=== PATIENT | male | born 1960 | race Caucasian/White ===

== ENCOUNTER 2017-01-09 16:18 | Emergency (ER) | payer SELFPAY ==
[~2017-01-09] VITALS: Ht 175.3 cm; Wt 75.5 kg
[2017-01-09 17:18] LABS: ADD MIUA? YES; BILIRUBIN NEGATIVE; BLOOD MODERATE; COLOR YELLOW ((YELLOW)); GLUCOSE (STRIP) NEGATIVE; KETONES NEGATIVE; LEUKOCYTES NEGATIVE; NITRITE NEGATIVE; PROTEIN (STRIP) 100; SPECIFIC GRAVITY 1.021 (1.000-1.030); UROBILINOGEN 0.2 MG/DL (0.2-1.0)
[2017-01-09 17:22] LABS: BACTERIA RARE /HPF; EPITHELIAL CELLS RARE /HPF; GRANULAR CASTS TNTC /LPF; HYALINE CASTS 0-5 /LPF; MUCUS TRACE /LPF; RED BLOOD CELLS TNTC /HPF (0-5); WHITE BLOOD CELLS TNTC /HPF (0-5)
[2017-01-09 17:24] LABS: HEMATOCRIT 29.9 % (38.0-50.0); MCH 30.6 PG (29.0-34.0); MCHC 34.8 G/DL (30.0-36.0); MCV 87.9 FL (86-99); MEAN PLAT.VOLUME 8.5 uM^3 (9.0-12.4); PLATELET COUNT 208 K/uL (156-360); RBC DIS.WIDTH-CV 13.2 % (11.8-14.6); RBC DIS.WIDTH-SD 42.7 % (39-53); WHITE BLOOD COUNT 5.6 K/uL (4.1-10.2)
[2017-01-09 17:33] LABS: CHLORIDE 104 mEq/L (99-109); POTASSIUM 3.9 mEq/L (3.7-5.4); SODIUM 137 mEq/L (136-147)
[2017-01-09 17:36] LABS: GLUCOSE 78 mg/dL (70-99)
[2017-01-09 17:37] LABS: ANION GAP 10 MEQ/L (2-14)
[2017-01-09 17:38] LABS: TOTAL BILIRUBIN 0.3 mg/dL (0.0-1.0)
[2017-01-09 17:39] LABS: ALKALINE PHOSPHATASE 52 IU/L (3-129); GFR ESTIMATE (CALCULATED) > 59 mL/min/
[2017-01-09 17:40] LABS: UREA NITROGEN (BUN) 16 mg/dL (9-23)
[2017-01-09] MEDS ORDERED: BACTRIM,SEPT1 TABLET PO (19:33)
[2017-01-09 19:48] VITALS: BP 118/74
== END 2017-01-09 19:49 | disposition home or self-care (01) ==
LOC: EME 16:18
PROVIDERS: Nurse Practitioner Family
DX: N30.01 Acute cystitis with hematuria (principal); R10.9 Unspecified abdominal pain; F17.200 Nicotine dependence, unspecified, uncomplicated
CPT/HCPCS: 74000; 80053; 81003; 85027; 87086; 99281; 99284

== ENCOUNTER 2017-01-11 00:32 | Inpatient (IN) | payer OTHER ==
[~2017-01-11] VITALS: Ht 175.3 cm; Wt 69.1 kg
[~2017-01-11 00:32] MED LIST: BACTRIM,SEPT1 TABLET PO
[2017-01-11 01:09] LABS: HEMATOCRIT 33.7 % (38.0-50.0); MCH 30.3 PG (29.0-34.0); MCHC 34.4 G/DL (30.0-36.0); MEAN PLAT.VOLUME 8.8 uM^3 (9.0-12.4); PLATELET COUNT 269 K/uL (156-360); RBC DIS.WIDTH-CV 13.4 % (11.8-14.6); RBC DIS.WIDTH-SD 43.1 % (39-53); RED BLOOD COUNT 3.83 M/uL (4.00-5.50); WHITE BLOOD COUNT 7.3 K/uL (4.1-10.2)
[2017-01-11 01:11] LABS: CHLORIDE 105 mEq/L (99-109); POTASSIUM 3.8 mEq/L (3.7-5.4); SODIUM 138 mEq/L (136-147)
[2017-01-11 01:15] LABS: ANION GAP 12 MEQ/L (2-14)
[2017-01-11 01:16] LABS: TOTAL BILIRUBIN 0.3 mg/dL (0.0-1.0)
[2017-01-11 01:17] LABS: ALKALINE PHOSPHATASE 65 IU/L (3-129); GFR ESTIMATE (CALCULATED) > 59 mL/min/
[2017-01-11 01:18] LABS: ADD MIUA? YES; BILIRUBIN NEGATIVE; BLOOD LARGE; GLUCOSE (STRIP) 50; KETONES 5; LEUKOCYTES NEGATIVE; NITRITE NEGATIVE; PROTEIN (STRIP) 100; SPECIFIC GRAVITY 1.017 (1.000-1.030); UROBILINOGEN 0.2 MG/DL (0.2-1.0)
[2017-01-11 01:18] LABS: UREA NITROGEN (BUN) 13 mg/dL (9-23)
[2017-01-11 01:19] LABS: COLOR RED ((YELLOW))
[2017-01-11 01:25] LABS: GLUCOSE 106 mg/dL (70-99)
[2017-01-11 01:29] LABS: RED BLOOD CELLS TNTC /HPF (0-5)
[2017-01-11 01:30] LABS: UCUL ADDED? YES
[2017-01-11 06:33] VITALS: BP 163/85
[2017-01-11 09:39] VITALS: BP 151/77
[2017-01-11 16:28] VITALS: BP 147/76
[2017-01-11 19:22] VITALS: BP 160/77
[2017-01-12 00:56] VITALS: BP 145/80
[2017-01-12 04:00] VITALS: BP 147/78
[2017-01-12 05:21] LABS: EOSINOPHIL (%) 0.2 % (0-5); HEMATOCRIT 29.9 % (38.0-50.0); IMMATURE GRANULOCYTE (%) 0.3 % (0.0-0.7); INSTRUMENT ABS NEUTROPHIL CT 4.9 K/uL; LYMPHOCYTE COUNT 0.9 K/uL (1.0-2.8); MCH 29.9 PG (29.0-34.0); MCHC 33.4 G/DL (30.0-36.0); MCV 89.3 FL (86-99); MEAN PLAT.VOLUME 8.9 uM^3 (9.0-12.4); MONOCYTE (%) 6.3 % (3-12); MONOCYTE COUNT 0.4 K/uL (0-0.8); NEUTROPHIL (%) 78.5 % (45-76); NEUTROPHIL COUNT 4.9 K/uL (1.8-6.4); PLATELET COUNT 217 K/uL (156-360); RBC DIS.WIDTH-CV 13.2 % (11.8-14.6); RBC DIS.WIDTH-SD 43.5 % (39-53); RED BLOOD COUNT 3.35 M/uL (4.00-5.50); WHITE BLOOD COUNT 6.2 K/uL (4.1-10.2)
[2017-01-12 05:40] LABS: INTER. NORMALIZED RATIO 1.1; PROTHROMBIN TIME 11.4 (9.2-11.2); PTT 25.4 (25-32)
[2017-01-12 05:51] LABS: ALKALINE PHOSPHATASE 57 IU/L (3-129); ANION GAP 14 MEQ/L (2-14); CHLORIDE 107 MEQ/L (99-109); GFR ESTIMATE (CALCULATED) > 59 mL/min/; GLUCOSE 96 mg/dL (70-99); POTASSIUM 4.4 MEQ/L (3.7-5.4); SAMPLE HEMOLYSIS CHECK 0; SAMPLE ICTERIC CHECK 0; SAMPLE LIPEMIA CHECK 0; SODIUM 139 MEQ/L (136-147); TOTAL BILIRUBIN 0.4 MG/DL (0.0-1.0); UREA NITROGEN (BUN) 9 mg/dL (9-23)
[2017-01-12 07:49] VITALS: BP 146/86
[2017-01-12 16:06] VITALS: BP 144/78
[2017-01-12 20:52] VITALS: BP 198/90
[2017-01-12 23:37] VITALS: BP 151/79
[2017-01-13] VITALS (7 sets, daily range): BP systolic 131–149; BP diastolic 64–71
[2017-01-13 05:53] LABS: EOSINOPHIL (%) 0 % (0-5); HEMATOCRIT 25.8 % (38.0-50.0); IMMATURE GRANULOCYTE (%) 0.4 % (0.0-0.7); INSTRUMENT ABS NEUTROPHIL CT 5.5 K/uL; LYMPHOCYTE COUNT 0.7 K/uL (1.0-2.8); MCH 30.4 PG (29.0-34.0); MCHC 33.3 G/DL (30.0-36.0); MCV 91.2 FL (86-99); MEAN PLAT.VOLUME 9.2 uM^3 (9.0-12.4); MONOCYTE (%) 8.9 % (3-12); MONOCYTE COUNT 0.6 K/uL (0-0.8); NEUTROPHIL COUNT 5.5 K/uL (1.8-6.4); PLATELET COUNT 189 K/uL (156-360); RBC DIS.WIDTH-CV 13.6 % (11.8-14.6); RBC DIS.WIDTH-SD 45.1 % (39-53); RED BLOOD COUNT 2.83 M/uL (4.00-5.50); WHITE BLOOD COUNT 6.9 K/uL (4.1-10.2)
[2017-01-13 06:16] LABS: ANION GAP 13 MEQ/L (2-14); CHLORIDE 107 MEQ/L (99-109); GFR ESTIMATE (CALCULATED) > 59 mL/min/; GLUCOSE 117 mg/dL (70-99); POTASSIUM 4.3 MEQ/L (3.7-5.4); SAMPLE HEMOLYSIS CHECK 0; SAMPLE ICTERIC CHECK 0; SAMPLE LIPEMIA CHECK 0; SODIUM 139 MEQ/L (136-147); UREA NITROGEN (BUN) 11 mg/dL (9-23)
[2017-01-14] VITALS (7 sets, daily range): BP systolic 145–177; BP diastolic 76–84
[2017-01-14 05:08] LABS: EOSINOPHIL (%) 0 % (0-5); HEMATOCRIT 25.8 % (38.0-50.0); IMMATURE GRANULOCYTE (%) 0.6 % (0.0-0.7); INSTRUMENT ABS NEUTROPHIL CT 5.4 K/uL; LYMPHOCYTE COUNT 0.8 K/uL (1.0-2.8); MCH 30.3 PG (29.0-34.0); MCHC 33.7 G/DL (30.0-36.0); MCV 89.9 FL (86-99); MEAN PLAT.VOLUME 9.2 uM^3 (9.0-12.4); MONOCYTE (%) 8.9 % (3-12); MONOCYTE COUNT 0.6 K/uL (0-0.8); NEUTROPHIL (%) 78.3 % (45-76); NEUTROPHIL COUNT 5.4 K/uL (1.8-6.4); PLATELET COUNT 202 K/uL (156-360); RBC DIS.WIDTH-CV 13.3 % (11.8-14.6); RBC DIS.WIDTH-SD 43.9 % (39-53); RED BLOOD COUNT 2.87 M/uL (4.00-5.50); WHITE BLOOD COUNT 6.9 K/uL (4.1-10.2)
[2017-01-14 05:37] LABS: ANION GAP 10 MEQ/L (2-14); CHLORIDE 106 MEQ/L (99-109); GFR ESTIMATE (CALCULATED) > 59 mL/min/; GLUCOSE 102 mg/dL (70-99); MAGNESIUM 2.2 mg/dl (1.3-2.7); POTASSIUM 3.8 MEQ/L (3.7-5.4); SAMPLE HEMOLYSIS CHECK 0; SAMPLE ICTERIC CHECK 0; SAMPLE LIPEMIA CHECK 0; SODIUM 138 MEQ/L (136-147); UREA NITROGEN (BUN) 12 mg/dL (9-23)
[2017-01-15 05:30] LABS: HEMATOCRIT 27.4 % (38.0-50.0); MCH 30.2 PG (29.0-34.0); MCHC 33.6 G/DL (30.0-36.0); MCV 89.8 FL (86-99); MEAN PLAT.VOLUME 9.5 uM^3 (9.0-12.4); PLATELET COUNT 221 K/uL (156-360); RBC DIS.WIDTH-CV 13.4 % (11.8-14.6); RBC DIS.WIDTH-SD 44.2 % (39-53); RED BLOOD COUNT 3.05 M/uL (4.00-5.50); WHITE BLOOD COUNT 7.6 K/uL (4.1-10.2)
[2017-01-15 05:40] LABS: ANION GAP 11 MEQ/L (2-14); CHLORIDE 106 MEQ/L (99-109); GFR ESTIMATE (CALCULATED) > 59 mL/min/; GLUCOSE 109 mg/dL (70-99); MAGNESIUM 2.3 mg/dl (1.3-2.7); POTASSIUM 4.2 MEQ/L (3.7-5.4); SAMPLE HEMOLYSIS CHECK 0; SAMPLE ICTERIC CHECK 0; SAMPLE LIPEMIA CHECK 0; SODIUM 140 MEQ/L (136-147); UREA NITROGEN (BUN) 13 mg/dL (9-23)
[2017-01-15 07:15] VITALS: BP 163/87
[2017-01-15 11:16] VITALS: BP 159/81
[2017-01-15 15:07] VITALS: BP 163/87
[2017-01-15 20:07] VITALS: BP 168/86
[2017-01-15 23:28] VITALS: BP 147/88
[2017-01-16] VITALS (7 sets, daily range): BP systolic 152–460; BP diastolic 78–94
[2017-01-16 11:24] LABS: POINT-OF-CARE METER ID UU14149397
[2017-01-17 03:15] VITALS: BP 162/84
[2017-01-17 08:00] VITALS: BP 165/87
[2017-01-17 17:32] LABS: POINT-OF-CARE METER ID UU14188577
[2017-01-17 22:01] LABS: POINT-OF-CARE METER ID UU14188577
[2017-01-17 23:25] VITALS: BP 166/85
[2017-01-18 06:01] LABS: EOSINOPHIL (%) 0.4 % (0-5); EOSINOPHIL COUNT 0.1 K/uL (0-0.3); HEMATOCRIT 30.1 % (38.0-50.0); IMMATURE GRANULOCYTE (%) 0.5 % (0.0-0.7); IMMATURE GRANULOCYTE COUNT 0.1 K/uL; INSTRUMENT ABS NEUTROPHIL CT 8.5 K/uL; LYMPHOCYTE COUNT 1.4 K/uL (1.0-2.8); MCH 30.2 PG (29.0-34.0); MCHC 35.2 G/DL (30.0-36.0); MEAN PLAT.VOLUME 8.4 uM^3 (9.0-12.4); MONOCYTE COUNT 1.1 K/uL (0-0.8); NEUTROPHIL (%) 76.2 % (45-76); NEUTROPHIL COUNT 8.5 K/uL (1.8-6.4); RBC DIS.WIDTH-CV 13.4 % (11.8-14.6); RBC DIS.WIDTH-SD 41.9 % (39-53); RED BLOOD COUNT 3.51 M/uL (4.00-5.50)
[2017-01-18 06:26] LABS: ANION GAP 14 MEQ/L (2-14); CHLORIDE 100 MEQ/L (99-109); GFR ESTIMATE (CALCULATED) 51 mL/min/; GLUCOSE 128 mg/dL (70-99); MAGNESIUM 2.4 mg/dl (1.3-2.7); POTASSIUM 3.8 MEQ/L (3.7-5.4); SAMPLE HEMOLYSIS CHECK 0; SAMPLE ICTERIC CHECK 0; SAMPLE LIPEMIA CHECK 0; SODIUM 134 MEQ/L (136-147)
[2017-01-18 06:28] LABS: UREA NITROGEN (BUN) 22 mg/dL (9-23)
[2017-01-18 06:31] LABS: MCV 85.8 FL (86-99); PLATELET COUNT 300 K/uL (156-360); WHITE BLOOD COUNT 11.2 K/uL (4.1-10.2)
[2017-01-18 06:37] LABS: POINT-OF-CARE METER ID UU14188577
[2017-01-18 08:00] VITALS: BP 145/87
[2017-01-18 12:00] VITALS: BP 136/84
[2017-01-18 16:08] VITALS: BP 160/87
[2017-01-18 19:16] VITALS: BP 175/92
[2017-01-19 03:28] VITALS: BP 136/84
[2017-01-19 04:58] LABS: MCH 29.9 PG (29.0-34.0); MCV 85.4 FL (86-99); MEAN PLAT.VOLUME 8.5 uM^3 (9.0-12.4); PLATELET COUNT 252 K/uL (156-360); RBC DIS.WIDTH-CV 13.3 % (11.8-14.6); RBC DIS.WIDTH-SD 41.7 % (39-53); RED BLOOD COUNT 3.28 M/uL (4.00-5.50); WHITE BLOOD COUNT 9.3 K/uL (4.1-10.2)
[2017-01-19 05:17] LABS: CHLORIDE 107 mEq/L (99-109); SODIUM 136 mEq/L (136-147)
[2017-01-19 05:18] LABS: MAGNESIUM 2.2 mg/dL (1.3-2.7)
[2017-01-19 05:19] LABS: GLUCOSE 108 mg/dL (70-99)
[2017-01-19 05:20] LABS: ANION GAP 10 MEQ/L (2-14)
[2017-01-19 05:23] LABS: GFR ESTIMATE (CALCULATED) 51 mL/min/
[2017-01-19 05:24] LABS: UREA NITROGEN (BUN) 22 mg/dL (9-23)
[2017-01-19 08:05] VITALS: BP 169/91
[2017-01-19 12:03] LABS: POINT-OF-CARE METER ID UU14188577
[2017-01-19 16:45] VITALS: BP 162/85
[2017-01-20 00:23] VITALS: BP 137/79
[2017-01-20 03:57] VITALS: BP 141/91
[2017-01-20 05:21] LABS: EOSINOPHIL (%) 0.5 % (0-5); HEMATOCRIT 26.8 % (38.0-50.0); IMMATURE GRANULOCYTE (%) 0.5 % (0.0-0.7); INSTRUMENT ABS NEUTROPHIL CT 6.2 K/uL; MCH 30.2 PG (29.0-34.0); MCHC 35.4 G/DL (30.0-36.0); MCV 85.1 FL (86-99); MEAN PLAT.VOLUME 8.4 uM^3 (9.0-12.4); MONOCYTE (%) 9.2 % (3-12); MONOCYTE COUNT 0.7 K/uL (0-0.8); NEUTROPHIL (%) 76.7 % (45-76); NEUTROPHIL COUNT 6.2 K/uL (1.8-6.4); PLATELET COUNT 202 K/uL (156-360); RBC DIS.WIDTH-CV 13.5 % (11.8-14.6); RBC DIS.WIDTH-SD 42.1 % (39-53); RED BLOOD COUNT 3.15 M/uL (4.00-5.50); WHITE BLOOD COUNT 8.1 K/uL (4.1-10.2)
[2017-01-20 05:58] LABS: ANION GAP 14 MEQ/L (2-14); CHLORIDE 104 MEQ/L (99-109); GFR ESTIMATE (CALCULATED) 30 mL/min/; GLUCOSE 104 mg/dL (70-99); POTASSIUM 3.7 MEQ/L (3.7-5.4); SAMPLE HEMOLYSIS CHECK 0; SAMPLE ICTERIC CHECK 0; SAMPLE LIPEMIA CHECK 0; SODIUM 135 MEQ/L (136-147); UREA NITROGEN (BUN) 28 mg/dL (9-23)
[2017-01-20 08:27] VITALS: BP 178/99
[2017-01-20 12:19] VITALS: BP 152/76
[2017-01-20 17:25] VITALS: BP 157/87
[2017-01-20 20:38] VITALS: BP 135/85
[2017-01-21 00:40] VITALS: BP 150/79
[2017-01-21 05:29] LABS: EOSINOPHIL (%) 0.6 % (0-5); EOSINOPHIL COUNT 0.1 K/uL (0-0.3); HEMATOCRIT 25.1 % (38.0-50.0); IMMATURE GRANULOCYTE (%) 0.4 % (0.0-0.7); INSTRUMENT ABS NEUTROPHIL CT 5.9 K/uL; LYMPHOCYTE COUNT 1.1 K/uL (1.0-2.8); MCH 29.2 PG (29.0-34.0); MCHC 34.7 G/DL (30.0-36.0); MCV 84.2 FL (86-99); MEAN PLAT.VOLUME 8.6 uM^3 (9.0-12.4); MONOCYTE COUNT 0.8 K/uL (0-0.8); NEUTROPHIL COUNT 5.9 K/uL (1.8-6.4); PLATELET COUNT 173 K/uL (156-360); RBC DIS.WIDTH-CV 13.6 % (11.8-14.6); RBC DIS.WIDTH-SD 41.8 % (39-53); RED BLOOD COUNT 2.98 M/uL (4.00-5.50); WHITE BLOOD COUNT 7.9 K/uL (4.1-10.2)
[2017-01-21 06:01] LABS: ALKALINE PHOSPHATASE 44 IU/L (3-129); ANION GAP 13 MEQ/L (2-14); CHLORIDE 104 MEQ/L (99-109); GFR ESTIMATE (CALCULATED) 22 mL/min/; GLUCOSE 99 mg/dL (70-99); MAGNESIUM 2.2 mg/dl (1.3-2.7); POTASSIUM 3.8 MEQ/L (3.7-5.4); SAMPLE HEMOLYSIS CHECK 0; SAMPLE ICTERIC CHECK 0; SAMPLE LIPEMIA CHECK 0; SODIUM 134 MEQ/L (136-147); TOTAL BILIRUBIN 0.4 MG/DL (0.0-1.0); UREA NITROGEN (BUN) 29 mg/dL (9-23); URIC ACID 12.2 mg/dL (3.1-9.2)
[2017-01-21 07:00] VITALS: BP 130/90
[2017-01-21 14:45] VITALS: BP 138/85
[2017-01-21 16:51] VITALS: BP 151/83
[2017-01-21 18:38] LABS: ADD MIUA? YES; BILIRUBIN NEGATIVE; BLOOD LARGE; GLUCOSE (STRIP) NEGATIVE; KETONES NEGATIVE; LEUKOCYTES NEGATIVE; NITRITE POSITIVE; PROTEIN (STRIP) 100; SPECIFIC GRAVITY 1.008 (1.000-1.030); UROBILINOGEN 0.2 MG/DL (0.2-1.0)
[2017-01-21 18:39] LABS: COLOR DK YELLOW ((YELLOW))
[2017-01-21 18:49] LABS: BACTERIA NONE SEEN /HPF; CASTS NONE SEEN /LPF; CRYSTALS NONE SEEN; EPITHELIAL CELLS NONE SEEN /HPF; MUCUS NONE SEEN /LPF; RED BLOOD CELLS TNTC /HPF (0-5); UCUL ADDED? NO; WHITE BLOOD CELLS RARE /HPF (0-5)
[2017-01-21 20:38] VITALS: BP 132/84
[2017-01-22 00:45] VITALS: BP 139/79
[2017-01-22 05:23] LABS: EOSINOPHIL (%) 0.6 % (0-5); EOSINOPHIL COUNT 0.1 K/uL (0-0.3); IMMATURE GRANULOCYTE (%) 0.8 % (0.0-0.7); IMMATURE GRANULOCYTE COUNT 0.1 K/uL; INSTRUMENT ABS NEUTROPHIL CT 5.6 K/uL; LYMPHOCYTE COUNT 1.1 K/uL (1.0-2.8); MCH 29.1 PG (29.0-34.0); MCHC 34.4 G/DL (30.0-36.0); MCV 84.5 FL (86-99); MEAN PLAT.VOLUME 8.8 uM^3 (9.0-12.4); MONOCYTE COUNT 0.9 K/uL (0-0.8); NEUTROPHIL (%) 72.8 % (45-76); NEUTROPHIL COUNT 5.6 K/uL (1.8-6.4); PLATELET COUNT 180 K/uL (156-360); RBC DIS.WIDTH-CV 13.7 % (11.8-14.6); RBC DIS.WIDTH-SD 41.9 % (39-53); RED BLOOD COUNT 2.96 M/uL (4.00-5.50); WHITE BLOOD COUNT 7.7 K/uL (4.1-10.2)
[2017-01-22 05:35] LABS: ALKALINE PHOSPHATASE 43 IU/L (3-129); ANION GAP 13 MEQ/L (2-14); CHLORIDE 104 MEQ/L (99-109); GFR ESTIMATE (CALCULATED) 24 mL/min/; GLUCOSE 109 mg/dL (70-99); POTASSIUM 3.8 MEQ/L (3.7-5.4); SAMPLE HEMOLYSIS CHECK 0; SAMPLE ICTERIC CHECK 0; SAMPLE LIPEMIA CHECK 0; SODIUM 135 MEQ/L (136-147); TOTAL BILIRUBIN 0.4 MG/DL (0.0-1.0); UREA NITROGEN (BUN) 32 mg/dL (9-23)
[2017-01-22 08:39] VITALS: BP 173/88
[2017-01-22 17:15] VITALS: BP 144/77
[2017-01-23] VITALS: BP 142/82
[2017-01-23 05:13] VITALS: BP 103/57
[2017-01-23 05:26] LABS: EOSINOPHIL (%) 1.7 % (0-5); EOSINOPHIL COUNT 0.1 K/uL (0-0.3); HEMATOCRIT 26.1 % (38.0-50.0); IMMATURE GRANULOCYTE COUNT 0.1 K/uL; LYMPHOCYTE COUNT 1.2 K/uL (1.0-2.8); MCH 29.5 PG (29.0-34.0); MCHC 35.6 G/DL (30.0-36.0); MCV 82.9 FL (86-99); MEAN PLAT.VOLUME 8.7 uM^3 (9.0-12.4); MONOCYTE (%) 8.6 % (3-12); MONOCYTE COUNT 0.7 K/uL (0-0.8); NEUTROPHIL (%) 73.6 % (45-76); PLATELET COUNT 188 K/uL (156-360); RBC DIS.WIDTH-CV 13.6 % (11.8-14.6); RED BLOOD COUNT 3.15 M/uL (4.00-5.50); WHITE BLOOD COUNT 8.2 K/uL (4.1-10.2)
[2017-01-23 05:48] LABS: ANION GAP 13 MEQ/L (2-14); CHLORIDE 104 MEQ/L (99-109); GFR ESTIMATE (CALCULATED) 37 mL/min/; GLUCOSE 105 mg/dL (70-99); POTASSIUM 3.6 MEQ/L (3.7-5.4); SAMPLE HEMOLYSIS CHECK 0; SAMPLE ICTERIC CHECK 0; SAMPLE LIPEMIA CHECK 0; SODIUM 135 MEQ/L (136-147); UREA NITROGEN (BUN) 24 mg/dL (9-23)
[2017-01-23 08:17] VITALS: BP 152/79
[2017-01-23 16:29] VITALS: BP 133/84
[2017-01-23 23:43] VITALS: BP 137/83
[2017-01-24 05:14] LABS: EOSINOPHIL (%) 0.8 % (0-5); EOSINOPHIL COUNT 0.1 K/uL (0-0.3); HEMATOCRIT 26.3 % (38.0-50.0); IMMATURE GRANULOCYTE (%) 0.8 % (0.0-0.7); IMMATURE GRANULOCYTE COUNT 0.1 K/uL; INSTRUMENT ABS NEUTROPHIL CT 7.1 K/uL; MCH 29.8 PG (29.0-34.0); MCHC 35.7 G/DL (30.0-36.0); MCV 83.5 FL (86-99); MEAN PLAT.VOLUME 8.7 uM^3 (9.0-12.4); NEUTROPHIL (%) 68.9 % (45-76); NEUTROPHIL COUNT 7.1 K/uL (1.8-6.4); PLATELET COUNT 220 K/uL (156-360); RBC DIS.WIDTH-SD 42.3 % (39-53); RED BLOOD COUNT 3.15 M/uL (4.00-5.50); WHITE BLOOD COUNT 10.3 K/uL (4.1-10.2)
[2017-01-24 05:38] LABS: ANION GAP 15 MEQ/L (2-14); CHLORIDE 102 MEQ/L (99-109); GFR ESTIMATE (CALCULATED) 30 mL/min/; GLUCOSE 94 mg/dL (70-99); POTASSIUM 4.2 MEQ/L (3.7-5.4); SAMPLE HEMOLYSIS CHECK 0; SAMPLE ICTERIC CHECK 0; SAMPLE LIPEMIA CHECK 0; SODIUM 134 MEQ/L (136-147); UREA NITROGEN (BUN) 27 mg/dL (9-23)
[2017-01-24 09:06] VITALS: BP 140/85
[2017-01-24 17:54] VITALS: BP 142/82
[2017-01-24 21:40] LABS: AMORPHOUS URATES CRYSTALS 1+; BACTERIA NONE SEEN /HPF; CASTS NONE SEEN /LPF; CRYSTALS PRESENT; EPITHELIAL CELLS NONE SEEN /HPF; MUCUS NONE SEEN /LPF; RED BLOOD CELLS 15-20 /HPF (0-5); URIC ACID CRYSTALS 1+ /HPF; WHITE BLOOD CELLS 0-5 /HPF (0-5)
[2017-01-24 23:48] VITALS: BP 126/74
[2017-01-25 05:56] LABS: ANION GAP 13 MEQ/L (2-14); CHLORIDE 101 MEQ/L (99-109); EOSINOPHIL (%) 0.2 % (0-5); GFR ESTIMATE (CALCULATED) 28 mL/min/; GLUCOSE 90 mg/dL (70-99); HEMATOCRIT 25.9 % (38.0-50.0); IMMATURE GRANULOCYTE (%) 0.7 % (0.0-0.7); IMMATURE GRANULOCYTE COUNT 0.1 K/uL; INSTRUMENT ABS NEUTROPHIL CT 9.1 K/uL; LYMPHOCYTE COUNT 1.8 K/uL (1.0-2.8); MCH 29.4 PG (29.0-34.0); MCHC 35.1 G/DL (30.0-36.0); MCV 83.5 FL (86-99); MEAN PLAT.VOLUME 8.6 uM^3 (9.0-12.4); MONOCYTE (%) 9.5 % (3-12); MONOCYTE COUNT 1.2 K/uL (0-0.8); NEUTROPHIL (%) 74.8 % (45-76); NEUTROPHIL COUNT 9.1 K/uL (1.8-6.4); PLATELET COUNT 257 K/uL (156-360); POTASSIUM 4.4 MEQ/L (3.7-5.4); RBC DIS.WIDTH-SD 42.1 % (39-53); SAMPLE HEMOLYSIS CHECK 0; SAMPLE ICTERIC CHECK 0; SAMPLE LIPEMIA CHECK 0; SODIUM 132 MEQ/L (136-147); UREA NITROGEN (BUN) 27 mg/dL (9-23); WHITE BLOOD COUNT 12.2 K/uL (4.1-10.2)
[2017-01-25 07:48] VITALS: BP 143/93
[2017-01-25 07:50] VITALS: BP 143/87
[2017-01-25 17:00] VITALS: BP 159/82
[2017-01-25 23:24] VITALS: BP 112/80
[2017-01-26 04:00] VITALS: BP 138/82
[2017-01-26 04:57] LABS: CHLORIDE 104 mEq/L (99-109); SODIUM 131 mEq/L (136-147)
[2017-01-26 04:58] LABS: GLUCOSE 93 mg/dL (70-99)
[2017-01-26 05:00] LABS: ANION GAP 14 MEQ/L (2-14)
[2017-01-26 05:03] LABS: UREA NITROGEN (BUN) 32 mg/dL (9-23)
[2017-01-26 05:07] LABS: GFR ESTIMATE (CALCULATED) 23 mL/min/
[2017-01-26 07:01] LABS: EOSINOPHIL (%) 0.3 % (0-5); HEMATOCRIT 26.2 % (38.0-50.0); IMMATURE GRANULOCYTE (%) 0.6 % (0.0-0.7); IMMATURE GRANULOCYTE COUNT 0.1 K/uL; INSTRUMENT ABS NEUTROPHIL CT 11.6 K/uL; LYMPHOCYTE COUNT 1.6 K/uL (1.0-2.8); MCH 29.2 PG (29.0-34.0); MCHC 34.7 G/DL (30.0-36.0); MEAN PLAT.VOLUME 8.2 uM^3 (9.0-12.4); MONOCYTE (%) 7.8 % (3-12); MONOCYTE COUNT 1.1 K/uL (0-0.8); NEUTROPHIL (%) 80.3 % (45-76); NEUTROPHIL COUNT 11.6 K/uL (1.8-6.4); PLATELET COUNT 285 K/uL (156-360); RBC DIS.WIDTH-CV 14.3 % (11.8-14.6); RBC DIS.WIDTH-SD 43.4 % (39-53); RED BLOOD COUNT 3.12 M/uL (4.00-5.50); WHITE BLOOD COUNT 14.5 K/uL (4.1-10.2)
[2017-01-26 07:51] VITALS: BP 139/81
[2017-01-26 11:04] LABS: BASE EXCESS -8.2 mEq/L (-3 to +3); BICARBONATE 16.9 mEq/L (22-26); CARBOXY HGB 1.9 % (0-5); METHEMOGLOBIN 2.2 % (0-1.5); PCO2 32 mm Hg (35-45); PO2 68 mm Hg (80-100); pH 7.33 (7.35-7.45)
[2017-01-26 11:05] LABS: COMMENTS - BLOOD GASES A+C+; DEVICE RA; FI02 21 %; SITE RRA; TOTAL RESP RATE 20 resp/min
[2017-01-26 15:28] VITALS: BP 140/81
[2017-01-27 00:25] VITALS: BP 132/78
[2017-01-27 06:01] LABS: EOSINOPHIL (%) 0.1 % (0-5); HEMATOCRIT 25.8 % (38.0-50.0); IMMATURE GRANULOCYTE (%) 0.6 % (0.0-0.7); IMMATURE GRANULOCYTE COUNT 0.1 K/uL; INSTRUMENT ABS NEUTROPHIL CT 11.2 K/uL; LYMPHOCYTE COUNT 1.8 K/uL (1.0-2.8); MCH 29.6 PG (29.0-34.0); MCHC 35.7 G/DL (30.0-36.0); MEAN PLAT.VOLUME 8.3 uM^3 (9.0-12.4); MONOCYTE (%) 8.5 % (3-12); MONOCYTE COUNT 1.2 K/uL (0-0.8); NEUTROPHIL COUNT 11.2 K/uL (1.8-6.4); PLATELET COUNT 335 K/uL (156-360); RBC DIS.WIDTH-CV 14.4 % (11.8-14.6); RBC DIS.WIDTH-SD 41.9 % (39-53); RED BLOOD COUNT 3.11 M/uL (4.00-5.50); WHITE BLOOD COUNT 14.4 K/uL (4.1-10.2)
[2017-01-27 06:19] LABS: ANION GAP 15 MEQ/L (2-14); CHLORIDE 96 MEQ/L (99-109); GFR ESTIMATE (CALCULATED) 25 mL/min/; GLUCOSE 112 mg/dL (70-99); POTASSIUM 4.4 MEQ/L (3.7-5.4); SAMPLE HEMOLYSIS CHECK 0; SAMPLE ICTERIC CHECK 0; SAMPLE LIPEMIA CHECK 0; SODIUM 128 MEQ/L (136-147); UREA NITROGEN (BUN) 34 mg/dL (9-23); URIC ACID 7.5 mg/dL (3.1-9.2)
[2017-01-27 06:22] LABS: MAGNESIUM 1.7 mg/dl (1.3-2.7)
[2017-01-27 08:04] VITALS: BP 144/84
[2017-01-27 14:54] LABS: ANION GAP 14 MEQ/L (2-14); CHLORIDE 95 MEQ/L (99-109); GFR ESTIMATE (CALCULATED) 27 mL/min/; GLUCOSE 97 mg/dL (70-99); POTASSIUM 4.4 MEQ/L (3.7-5.4); SAMPLE HEMOLYSIS CHECK 0; SAMPLE ICTERIC CHECK 0; SAMPLE LIPEMIA CHECK 0; SODIUM 127 MEQ/L (136-147); UREA NITROGEN (BUN) 33 mg/dL (9-23)
[2017-01-27 15:58] VITALS: BP 154/81
[2017-01-27 23:52] VITALS: BP 137/77
[2017-01-28 05:26] LABS: EOSINOPHIL (%) 0.1 % (0-5); HEMATOCRIT 27.2 % (38.0-50.0); IMMATURE GRANULOCYTE (%) 1.1 % (0.0-0.7); IMMATURE GRANULOCYTE COUNT 0.2 K/uL; INSTRUMENT ABS NEUTROPHIL CT 12.5 K/uL; LYMPHOCYTE COUNT 1.9 K/uL (1.0-2.8); MCH 29.4 PG (29.0-34.0); MCHC 35.3 G/DL (30.0-36.0); MCV 83.2 FL (86-99); MEAN PLAT.VOLUME 8.1 uM^3 (9.0-12.4); MONOCYTE (%) 6.9 % (3-12); MONOCYTE COUNT 1.1 K/uL (0-0.8); NEUTROPHIL (%) 79.5 % (45-76); NEUTROPHIL COUNT 12.5 K/uL (1.8-6.4); PLATELET COUNT 350 K/uL (156-360); RBC DIS.WIDTH-CV 14.7 % (11.8-14.6); RBC DIS.WIDTH-SD 41.7 % (39-53); RED BLOOD COUNT 3.27 M/uL (4.00-5.50); WHITE BLOOD COUNT 15.7 K/uL (4.1-10.2)
[2017-01-28 05:32] LABS: INTER. NORMALIZED RATIO 1.1; PROTHROMBIN TIME 10.9 (9.2-11.2); PTT 30.1 (25-32)
[2017-01-28 05:48] LABS: ANION GAP 15 MEQ/L (2-14); CHLORIDE 93 MEQ/L (99-109); GFR ESTIMATE (CALCULATED) 25 mL/min/; GLUCOSE 113 mg/dL (70-99); LACTATE DEHYDROGENASE 333 IU/L (20-246); POTASSIUM 4.2 MEQ/L (3.7-5.4); SAMPLE HEMOLYSIS CHECK 0; SAMPLE ICTERIC CHECK 0; SAMPLE LIPEMIA CHECK 0; SODIUM 126 MEQ/L (136-147); UREA NITROGEN (BUN) 37 mg/dL (9-23)
[2017-01-28 07:08] LABS: ERTH.SED.RATE 29 MM/HR (0-20)
[2017-01-28 07:53] VITALS: BP 132/72
[2017-01-28 10:33] LABS: ANISOCYTOSIS 2+; MACROCYTES 1+; MICROCYTOSIS 1+; OVALOCYTES OCC; PLAT.SUFFICIENCY ADEQUATE; POLYCHROMASIA OCC
[2017-01-28 12:00] VITALS: BP 139/80
[2017-01-28 15:57] VITALS: BP 132/79
[2017-01-28 20:01] VITALS: BP 119/78
[2017-01-28 23:47] VITALS: BP 135/80
[2017-01-29 04:35] VITALS: BP 143/81
[2017-01-29 05:34] LABS: EOSINOPHIL (%) 0 % (0-5); HEMATOCRIT 26.3 % (38.0-50.0); IMMATURE GRANULOCYTE (%) 0.7 % (0.0-0.7); IMMATURE GRANULOCYTE COUNT 0.1 K/uL; INSTRUMENT ABS NEUTROPHIL CT 12.1 K/uL; MCH 29.7 PG (29.0-34.0); MCHC 35.7 G/DL (30.0-36.0); MEAN PLAT.VOLUME 8.3 uM^3 (9.0-12.4); MONOCYTE (%) 5.7 % (3-12); MONOCYTE COUNT 0.9 K/uL (0-0.8); NEUTROPHIL (%) 80.3 % (45-76); NEUTROPHIL COUNT 12.1 K/uL (1.8-6.4); NRBC (%) 0.1 /100 WBC (0-0); PLATELET COUNT 382 K/uL (156-360); RBC DIS.WIDTH-CV 14.6 % (11.8-14.6); RBC DIS.WIDTH-SD 41.7 % (39-53); RED BLOOD COUNT 3.17 M/uL (4.00-5.50)
[2017-01-29 08:07] LABS: ANION GAP 15 MEQ/L (2-14); CHLORIDE 89 MEQ/L (99-109); GFR ESTIMATE (CALCULATED) 20 mL/min/; GLUCOSE 115 mg/dL (70-99); MAGNESIUM 1.8 mg/dl (1.3-2.7); POTASSIUM 4.5 MEQ/L (3.7-5.4); SAMPLE HEMOLYSIS CHECK 0; SAMPLE ICTERIC CHECK 0; SAMPLE LIPEMIA CHECK 0; SODIUM 124 MEQ/L (136-147); UREA NITROGEN (BUN) 43 mg/dL (9-23)
[2017-01-29 08:30] VITALS: BP 113/73
[2017-01-29 13:31] LABS: HBSG INDEX 0.22
[2017-01-29 13:33] LABS: ANTI-HEPATITIS A VIRUS (IGM) Nonreactive; ANTI-HEPATITIS B CORE (IGM) Nonreactive; HAV INDEX 0.11; HBC IgM INDEX 0.06
[2017-01-29 13:39] LABS: HPCA INDEX 15.91
[2017-01-29 14:23] LABS: AHBS INDEX 0.01; HEPATITIS B SURFACE ANTIBODY Nonreactive
[2017-01-29 17:58] VITALS: BP 129/79
[2017-01-29 19:07] VITALS: BP 137/77
[2017-01-30 04:40] LABS: EOSINOPHIL (%) 0 % (0-5); HEMATOCRIT 25.1 % (38.0-50.0); IMMATURE GRANULOCYTE (%) 0.6 % (0.0-0.7); IMMATURE GRANULOCYTE COUNT 0.1 K/uL; INSTRUMENT ABS NEUTROPHIL CT 9.6 K/uL; LYMPHOCYTE COUNT 1.9 K/uL (1.0-2.8); MCH 29.5 PG (29.0-34.0); MCHC 35.1 G/DL (30.0-36.0); MCV 84.2 FL (86-99); MEAN PLAT.VOLUME 8.3 uM^3 (9.0-12.4); MONOCYTE COUNT 0.7 K/uL (0-0.8); NEUTROPHIL (%) 77.8 % (45-76); NEUTROPHIL COUNT 9.6 K/uL (1.8-6.4); NRBC (%) 0.5 /100 WBC (0-0); PLATELET COUNT 363 K/uL (156-360); RBC DIS.WIDTH-SD 42.9 % (39-53); RED BLOOD COUNT 2.98 M/uL (4.00-5.50); WHITE BLOOD COUNT 12.4 K/uL (4.1-10.2)
[2017-01-30 04:50] LABS: CHLORIDE 96 mEq/L (99-109); POTASSIUM 4.2 mEq/L (3.7-5.4)
[2017-01-30 04:52] LABS: GLUCOSE 114 mg/dL (70-99)
[2017-01-30 04:53] LABS: ANION GAP 14 MEQ/L (2-14)
[2017-01-30 04:54] LABS: TOTAL BILIRUBIN 0.5 mg/dL (0.0-1.0)
[2017-01-30 04:55] LABS: ALKALINE PHOSPHATASE 60 IU/L (3-129)
[2017-01-30 04:57] LABS: UREA NITROGEN (BUN) 33 mg/dL (9-23)
[2017-01-30 05:01] LABS: GFR ESTIMATE (CALCULATED) 30 mL/min/; SODIUM 131 mEq/L (136-147)
[2017-01-30 06:53] VITALS: BP 137/75
[2017-01-30 13:35] VITALS: BP 139/69
[2017-01-30 15:50] VITALS: BP 122/61
[2017-01-30 17:13] LABS: Flow Number of Markers 22 (()); Flow Spec Viability 95 % (()); Flow Specimen Type BONE MARROW (())
[2017-01-30 19:59] LABS: BACTERIA 4+ /HPF; CASTS NONE SEEN /LPF; EPITHELIAL CELLS NONE SEEN /HPF; MUCUS NONE SEEN /LPF; RED BLOOD CELLS TNTC /HPF (0-5); WHITE BLOOD CELLS TNTC /HPF (0-5)
[2017-01-30 20:10] VITALS: BP 129/70
[2017-01-30 23:48] VITALS: BP 124/70
[2017-01-31 03:52] VITALS: BP 128/77
[2017-01-31 06:51] LABS: EOSINOPHIL (%) 0 % (0-5); HEMATOCRIT 24.3 % (38.0-50.0); IMMATURE GRANULOCYTE (%) 0.9 % (0.0-0.7); IMMATURE GRANULOCYTE COUNT 0.1 K/uL; INSTRUMENT ABS NEUTROPHIL CT 11.5 K/uL; LYMPHOCYTE COUNT 0.4 K/uL (1.0-2.8); MCH 29.8 PG (29.0-34.0); MCV 85.3 FL (86-99); MEAN PLAT.VOLUME 8.5 uM^3 (9.0-12.4); MONOCYTE (%) 2.2 % (3-12); MONOCYTE COUNT 0.3 K/uL (0-0.8); NEUTROPHIL (%) 93.6 % (45-76); NEUTROPHIL COUNT 11.5 K/uL (1.8-6.4); PLATELET COUNT 326 K/uL (156-360); RBC DIS.WIDTH-CV 15.2 % (11.8-14.6); RED BLOOD COUNT 2.85 M/uL (4.00-5.50); WHITE BLOOD COUNT 12.3 K/uL (4.1-10.2)
[2017-01-31 07:18] LABS: ALKALINE PHOSPHATASE 55 IU/L (3-129); ALKALINE PHOSPHATASE 56 IU/L (3-129); ANION GAP 13 MEQ/L (2-14); ANION GAP 14 MEQ/L (2-14); CHLORIDE 93 MEQ/L (99-109); DIRECT BILIRUBIN 0.2 mg/dL (0.0-0.3); GFR ESTIMATE (CALCULATED) 44 mL/min/; GLUCOSE 152 mg/dL (70-99); GLUCOSE 155 mg/dL (70-99); MAGNESIUM 1.9 mg/dl (1.3-2.7); POTASSIUM 4.6 MEQ/L (3.7-5.4); SAMPLE HEMOLYSIS CHECK 0; SAMPLE ICTERIC CHECK 0; SAMPLE LIPEMIA CHECK 0; SODIUM 129 MEQ/L (136-147); SODIUM 130 MEQ/L (136-147); TOTAL BILIRUBIN 0.3 MG/DL (0.0-1.0); TOTAL BILIRUBIN 0.5 MG/DL (0.0-1.0); TRIGLYCERIDES 220 MG/DL (Normal: <150); UREA NITROGEN (BUN) 32 mg/dL (9-23); URIC ACID 5.7 mg/dL (3.1-9.2)
[2017-01-31 07:21] LABS: GFR ESTIMATE (CALCULATED) 44 mL/min/; LACTATE DEHYDROGENASE 484 IU/L (20-246)
[2017-01-31 07:31] LABS: PREALBUMIN 5.6 mg/dL (10-40)
[2017-01-31 16:27] VITALS: BP 132/72
[2017-01-31 18:51] VITALS: BP 133/76
[2017-01-31 22:58] VITALS: BP 120/67
[2017-02-01 03:42] VITALS: BP 118/73
[2017-02-01 05:44] LABS: POINT-OF-CARE METER ID UU13113725
[2017-02-01 06:44] VITALS: BP 118/69
[2017-02-01 07:14] LABS: EOSINOPHIL (%) 0 % (0-5); HEMATOCRIT 22.6 % (38.0-50.0); IMMATURE GRANULOCYTE (%) 1.3 % (0.0-0.7); IMMATURE GRANULOCYTE COUNT 0.2 K/uL; INSTRUMENT ABS NEUTROPHIL CT 10.7 K/uL; LYMPHOCYTE COUNT 0.4 K/uL (1.0-2.8); MCHC 35.8 G/DL (30.0-36.0); MCV 83.7 FL (86-99); MEAN PLAT.VOLUME 8.6 uM^3 (9.0-12.4); MONOCYTE (%) 4.5 % (3-12); MONOCYTE COUNT 0.5 K/uL (0-0.8); NEUTROPHIL COUNT 10.7 K/uL (1.8-6.4); PLATELET COUNT 287 K/uL (156-360); RBC DIS.WIDTH-CV 15.1 % (11.8-14.6); RBC DIS.WIDTH-SD 43.5 % (39-53); WHITE BLOOD COUNT 11.8 K/uL (4.1-10.2)
[2017-02-01 07:34] LABS: ANION GAP 11 MEQ/L (2-14); CHLORIDE 91 MEQ/L (99-109); GFR ESTIMATE (CALCULATED) > 59 mL/min/; GLUCOSE 175 mg/dL (70-99); MAGNESIUM 1.8 mg/dl (1.3-2.7); POTASSIUM 3.7 MEQ/L (3.7-5.4); SAMPLE HEMOLYSIS CHECK 0; SAMPLE ICTERIC CHECK 0; SAMPLE LIPEMIA CHECK 0; SODIUM 125 MEQ/L (136-147); UREA NITROGEN (BUN) 43 mg/dL (9-23)
[2017-02-01 15:10] VITALS: BP 125/70
[2017-02-01 17:58] LABS: POINT-OF-CARE METER ID UU13113725
[2017-02-01 18:50] VITALS: BP 122/70
[2017-02-01 22:24] VITALS: BP 114/74
[2017-02-02 03:33] VITALS: BP 116/74
[2017-02-02 05:44] LABS: POINT-OF-CARE METER ID UU13113725
[2017-02-02 06:40] VITALS: BP 122/73
[2017-02-02 07:27] LABS: HEMATOCRIT 23.6 % (38.0-50.0); MCH 29.9 PG (29.0-34.0); MCV 83.1 FL (86-99); RBC DIS.WIDTH-CV 15.2 % (11.8-14.6); RBC DIS.WIDTH-SD 42.8 % (39-53); RED BLOOD COUNT 2.84 M/uL (4.00-5.50)
[2017-02-02 07:31] LABS: WHITE BLOOD COUNT 37.8 K/uL (4.1-10.2)
[2017-02-02 07:37] LABS: ALKALINE PHOSPHATASE 68 IU/L (3-129); ANION GAP 14 MEQ/L (2-14); CHLORIDE 92 MEQ/L (99-109); DIRECT BILIRUBIN 0.1 mg/dL (0.0-0.3); GFR ESTIMATE (CALCULATED) > 59 mL/min/; GLUCOSE 137 mg/dL (70-99); MAGNESIUM 1.7 mg/dl (1.3-2.7); POTASSIUM 3.5 MEQ/L (3.7-5.4); PREALBUMIN 13.1 mg/dL (10-40); SAMPLE HEMOLYSIS CHECK 0; SAMPLE ICTERIC CHECK 0; SAMPLE LIPEMIA CHECK 0; SODIUM 127 MEQ/L (136-147); TOTAL BILIRUBIN 0.3 MG/DL (0.0-1.0); TRIGLYCERIDES 168 MG/DL (Normal: <150); UREA NITROGEN (BUN) 54 mg/dL (9-23)
[2017-02-02 07:38] LABS: BASOPHIL COUNT 0.1 K/uL (0-0.1); EOSINOPHIL (%) 0 % (0-5); IMMATURE GRANULOCYTE (%) 2.9 % (0.0-0.7); IMMATURE GRANULOCYTE COUNT 1.1 K/uL; INSTRUMENT ABS NEUTROPHIL CT 35.4 K/uL; LYMPHOCYTE COUNT 0.3 K/uL (1.0-2.8); MEAN PLAT.VOLUME 8.4 uM^3 (9.0-12.4); MONOCYTE (%) 2.4 % (3-12); MONOCYTE COUNT 0.9 K/uL (0-0.8); NEUTROPHIL (%) 93.7 % (45-76); NEUTROPHIL COUNT 35.4 K/uL (1.8-6.4); PLATELET COUNT 288 K/uL (156-360)
[2017-02-02 11:35] VITALS: BP 131/76
[2017-02-02 11:45] LABS: POINT-OF-CARE METER ID UU13113725
[2017-02-02 16:18] VITALS: BP 117/68
[2017-02-02 18:45] VITALS: BP 125/67
[2017-02-02 20:50] LABS: POINT-OF-CARE METER ID UU13113725
[2017-02-02 23:35] VITALS: BP 117/74
[2017-02-03 02:35] VITALS: BP 130/76
[2017-02-03 07:09] VITALS: BP 131/80
[2017-02-03 07:34] LABS: MEAN PLAT.VOLUME 8.5 uM^3 (9.0-12.4); PLATELET COUNT 224 K/uL (156-360)
[2017-02-03 07:44] LABS: HEMATOCRIT 23.7 % (38.0-50.0); MCH 30.8 PG (29.0-34.0); MCHC 36.3 G/DL (30.0-36.0); MCV 84.9 FL (86-99); RBC DIS.WIDTH-CV 15.5 % (11.8-14.6); RBC DIS.WIDTH-SD 46.2 % (39-53); RED BLOOD COUNT 2.79 M/uL (4.00-5.50)
[2017-02-03 07:45] LABS: WHITE BLOOD COUNT 32.2 K/uL (4.1-10.2)
[2017-02-03 08:00] LABS: ANION GAP 10 MEQ/L (2-14); CHLORIDE 98 MEQ/L (99-109); GFR ESTIMATE (CALCULATED) > 59 mL/min/; GLUCOSE 169 mg/dL (70-99); MAGNESIUM 1.7 mg/dl (1.3-2.7); SAMPLE HEMOLYSIS CHECK 0; SAMPLE ICTERIC CHECK 0; SAMPLE LIPEMIA CHECK 0; SODIUM 133 MEQ/L (136-147); UREA NITROGEN (BUN) 50 mg/dL (9-23)
[2017-02-03 08:07] LABS: BASOPHIL COUNT 0.1 K/uL (0-0.1); EOSINOPHIL (%) 0 % (0-5); IMMATURE GRANULOCYTE (%) 2.4 % (0.0-0.7); IMMATURE GRANULOCYTE COUNT 0.8 K/uL; INSTRUMENT ABS NEUTROPHIL CT 30.9 K/uL; LYMPHOCYTE COUNT 0.2 K/uL (1.0-2.8); MONOCYTE (%) 0.7 % (3-12); MONOCYTE COUNT 0.2 K/uL (0-0.8); NEUTROPHIL COUNT 30.9 K/uL (1.8-6.4)
[2017-02-03 11:18] VITALS: BP 135/78
[2017-02-03 14:53] VITALS: BP 131/76
[2017-02-03 19:43] VITALS: BP 139/74
[2017-02-03 23:40] VITALS: BP 118/68
[2017-02-04 03:03] VITALS: BP 137/72
[2017-02-04 06:16] LABS: POINT-OF-CARE METER ID UU13113725
[2017-02-04 07:44] LABS: ANION GAP 10 MEQ/L (2-14); CHLORIDE 100 MEQ/L (99-109); GFR ESTIMATE (CALCULATED) > 59 mL/min/; GLUCOSE 144 mg/dL (70-99); MAGNESIUM 1.6 mg/dl (1.3-2.7); POTASSIUM 3.8 MEQ/L (3.7-5.4); SAMPLE HEMOLYSIS CHECK 0; SAMPLE ICTERIC CHECK 0; SAMPLE LIPEMIA CHECK 0; SODIUM 136 MEQ/L (136-147); UREA NITROGEN (BUN) 46 mg/dL (9-23)
[2017-02-04 07:45] VITALS: BP 132/71
[2017-02-04 09:17] LABS: HEMATOCRIT 23.2 % (38.0-50.0); MCH 30.1 PG (29.0-34.0); MCHC 34.9 G/DL (30.0-36.0); MCV 86.2 FL (86-99); MEAN PLAT.VOLUME 8.9 uM^3 (9.0-12.4); PLATELET COUNT 171 K/uL (156-360); RBC DIS.WIDTH-CV 15.7 % (11.8-14.6); RBC DIS.WIDTH-SD 48.3 % (39-53); RED BLOOD COUNT 2.69 M/uL (4.00-5.50)
[2017-02-04 09:19] LABS: WHITE BLOOD COUNT 21.3 K/uL (4.1-10.2)
[2017-02-04 09:37] LABS: ABS NEUTROPHIL COUNT 21.1; EOSINOPHIL ABS CT 0.2; EOSINOPHILS 0.9 % (0-5.0); INSTRUMENT ABS NEUTROPHIL CT 19.6 K/uL; SEG.NEUTROPHILS 99.1 % (46.0-76.0)
[2017-02-04 11:08] VITALS: BP 136/73
[2017-02-04 15:38] VITALS: BP 141/76
[2017-02-04 19:18] VITALS: BP 141/77
[2017-02-04 23:25] VITALS: BP 132/69
[2017-02-05 03:24] VITALS: BP 135/73
[2017-02-05 06:17] LABS: POINT-OF-CARE METER ID UU13113725
[2017-02-05 06:37] LABS: ANION GAP 7 MEQ/L (2-14); CHLORIDE 101 MEQ/L (99-109); GFR ESTIMATE (CALCULATED) > 59 mL/min/; GLUCOSE 182 mg/dL (70-99); MAGNESIUM 1.6 mg/dl (1.3-2.7); POTASSIUM 4.2 MEQ/L (3.7-5.4); SAMPLE HEMOLYSIS CHECK 0; SAMPLE ICTERIC CHECK 0; SAMPLE LIPEMIA CHECK 0; SODIUM 135 MEQ/L (136-147); UREA NITROGEN (BUN) 39 mg/dL (9-23)
[2017-02-05 06:43] VITALS: BP 120/68
[2017-02-05 09:28] LABS: MCH 29.4 PG (29.0-34.0); MCHC 34.2 G/DL (30.0-36.0); MCV 85.8 FL (86-99); MEAN PLAT.VOLUME 8.7 uM^3 (9.0-12.4); NRBC (%) 0.3 /100 WBC (0-0); PLATELET COUNT 160 K/uL (156-360); RBC DIS.WIDTH-CV 15.1 % (11.8-14.6); RBC DIS.WIDTH-SD 46.4 % (39-53); RED BLOOD COUNT 3.03 M/uL (4.00-5.50)
[2017-02-05 09:30] LABS: WHITE BLOOD COUNT 7.2 K/uL (4.1-10.2)
[2017-02-05 09:35] LABS: CHLORIDE 102 mEq/L (99-109); POTASSIUM 4.9 mEq/L (3.7-5.4); SODIUM 136 mEq/L (136-147)
[2017-02-05 09:37] LABS: GLUCOSE 165 mg/dL (70-99)
[2017-02-05 09:39] LABS: ANION GAP 8 MEQ/L (2-14)
[2017-02-05 09:41] LABS: GFR ESTIMATE (CALCULATED) > 59 mL/min/
[2017-02-05 09:42] LABS: UREA NITROGEN (BUN) 39 mg/dL (9-23)
[2017-02-05 10:28] LABS: ABS NEUTROPHIL COUNT 6.8; ANISOCYTOSIS 1+; BAND NEUTROPHILS 0.9 % (0-8.0); EOSINOPHIL ABS CT 0; INSTRUMENT ABS NEUTROPHIL CT 6.5 K/uL; LYMPHOCYTES 2.6 % (15.0-45.0); MICROCYTOSIS 1+; PLAT.SUFFICIENCY ADEQUATE; SPHEROCYTES 1+
[2017-02-05 11:00] VITALS: BP 125/70
[2017-02-05 15:07] VITALS: BP 128/73
[2017-02-05 19:43] VITALS: BP 129/71
[2017-02-06 00:20] VITALS: BP 126/74
[2017-02-06 03:51] VITALS: BP 125/75
[2017-02-06 05:34] LABS: POINT-OF-CARE METER ID UU13113725
[2017-02-06 06:42] VITALS: BP 114/65
[2017-02-06 08:14] LABS: ANION GAP 8 MEQ/L (2-14); CHLORIDE 102 MEQ/L (99-109); GFR ESTIMATE (CALCULATED) > 59 mL/min/; GLUCOSE 137 mg/dL (70-99); MAGNESIUM 1.6 mg/dl (1.3-2.7); POTASSIUM 4.3 MEQ/L (3.7-5.4); SAMPLE HEMOLYSIS CHECK 0; SAMPLE ICTERIC CHECK 0; SAMPLE LIPEMIA CHECK 0; SODIUM 138 MEQ/L (136-147); UREA NITROGEN (BUN) 36 mg/dL (9-23)
[2017-02-06 10:51] LABS: MCH 30.3 PG (29.0-34.0); MCHC 34.6 G/DL (30.0-36.0); MCV 87.5 FL (86-99); RBC DIS.WIDTH-CV 15.2 % (11.8-14.6); RBC DIS.WIDTH-SD 47.6 % (39-53); RED BLOOD COUNT 2.97 M/uL (4.00-5.50)
[2017-02-06 10:57] LABS: WHITE BLOOD COUNT 1.7 K/uL (4.1-10.2)
[2017-02-06 11:21] LABS: ABS NEUTROPHIL COUNT 1.4; ANISOCYTOSIS 1+; BAND NEUTROPHILS 6.8 % (0-8.0); EOSINOPHIL ABS CT 0; EOSINOPHILS 1.9 % (0-5.0); INSTRUMENT ABS NEUTROPHIL CT 1.4 K/uL; LYMPHOCYTES 15.5 % (15.0-45.0); MICROCYTOSIS 1+; PLAT.SUFFICIENCY DECREASED; PLATELET CLUMPS PRESENT - PLATELET COUNT APPEARS ADQ.; SEG.NEUTROPHILS 74.8 % (46.0-76.0)
[2017-02-06 13:02] VITALS: BP 120/66
[2017-02-06 15:19] VITALS: BP 114/65
[2017-02-06 22:46] VITALS: BP 129/75
[2017-02-07 05:58] LABS: ANION GAP 9 MEQ/L (2-14); CHLORIDE 100 MEQ/L (99-109); GFR ESTIMATE (CALCULATED) > 59 mL/min/; GLUCOSE 139 mg/dL (70-99); MAGNESIUM 1.7 mg/dl (1.3-2.7); POTASSIUM 3.9 MEQ/L (3.7-5.4); SAMPLE HEMOLYSIS CHECK 0; SAMPLE ICTERIC CHECK 0; SAMPLE LIPEMIA CHECK 0; SODIUM 137 MEQ/L (136-147); UREA NITROGEN (BUN) 33 mg/dL (9-23)
[2017-02-07 12:01] LABS: ABS NEUTROPHIL COUNT 2.3; ANISOCYTOSIS 1+; BAND NEUTROPHILS 6.1 % (0-8.0); EOSINOPHIL ABS CT 0; EOSINOPHILS 0.9 % (0-5.0); HEMATOCRIT 22.6 % (38.0-50.0); INSTRUMENT ABS NEUTROPHIL CT 1.8 K/uL; LYMPHOCYTES 9.6 % (15.0-45.0); MCH 29.4 PG (29.0-34.0); MCHC 34.5 G/DL (30.0-36.0); MCV 85.3 FL (86-99); MEAN PLAT.VOLUME 9.2 uM^3 (9.0-12.4); MICROCYTOSIS 1+; PLAT.SUFFICIENCY DECREASED; RBC DIS.WIDTH-CV 14.8 % (11.8-14.6); RBC DIS.WIDTH-SD 46.1 % (39-53); RED BLOOD COUNT 2.65 M/uL (4.00-5.50); SEG.NEUTROPHILS 82.5 % (46.0-76.0)
[2017-02-07 12:09] LABS: PLATELET COUNT 90 K/uL (156-360); WHITE BLOOD COUNT 2.6 K/uL (4.1-10.2)
[2017-02-07 15:38] VITALS: BP 120/66
[2017-02-07 16:44] LABS: POINT-OF-CARE METER ID UU13113725
[2017-02-07 20:57] LABS: POINT-OF-CARE METER ID UU13113725
[2017-02-07 23:13] VITALS: BP 119/73
[2017-02-08 07:52] LABS: ANION GAP 6 MEQ/L (2-14); CHLORIDE 102 MEQ/L (99-109); GFR ESTIMATE (CALCULATED) > 59 mL/min/; GLUCOSE 124 mg/dL (70-99); POTASSIUM 3.9 MEQ/L (3.7-5.4); SAMPLE HEMOLYSIS CHECK 0; SAMPLE ICTERIC CHECK 0; SAMPLE LIPEMIA CHECK 0; SODIUM 138 MEQ/L (136-147); UREA NITROGEN (BUN) 31 mg/dL (9-23)
[2017-02-08 09:47] VITALS: BP 109/64
[2017-02-08 14:17] LABS: HEMATOCRIT 21.6 % (38.0-50.0); MCH 29.8 PG (29.0-34.0); MCHC 35.2 G/DL (30.0-36.0); MCV 84.7 FL (86-99); RBC DIS.WIDTH-CV 14.8 % (11.8-14.6); RBC DIS.WIDTH-SD 45.7 % (39-53); RED BLOOD COUNT 2.55 M/uL (4.00-5.50)
[2017-02-08 14:21] LABS: WHITE BLOOD COUNT 1.7 K/uL (4.1-10.2)
[2017-02-08 15:57] LABS: ABS NEUTROPHIL COUNT 1.3; ANISOCYTOSIS 2+; ATYPICAL LYMPHOCYTE 0.9 %; BASOPHILS 0.9 %; EOSINOPHIL ABS CT 0; EOSINOPHILS 1.7 % (0-5.0); GIANT PLATELETS 1+; HEMATOLOGY COMMENT 1 SN; INSTRUMENT ABS NEUTROPHIL CT 1.3 K/uL; LYMPHOCYTES 18.4 % (15.0-45.0); MEAN PLAT.VOLUME 9.8 uM^3 (9.0-12.4); MICROCYTOSIS 2+; PLAT.SUFFICIENCY DECREASED; PLATELET COUNT 71 K/uL (156-360); SEG.NEUTROPHILS 73.7 % (46.0-76.0); SMUDGE CELLS 0.9; TOX.VACUOLIZATION 1+; TOXIC GRANULATION 1+
[2017-02-08 18:10] VITALS: BP 1138/66
[2017-02-08 21:03] LABS: POINT-OF-CARE METER ID UU13113725
[2017-02-08 22:51] VITALS: BP 119/69
[2017-02-09 05:42] LABS: POINT-OF-CARE METER ID UU13113725
[2017-02-09 07:28] VITALS: BP 117/64
[2017-02-09 07:59] LABS: CHLORIDE 101 mEq/L (99-109); POTASSIUM 4.4 mEq/L (3.7-5.4); SODIUM 135 mEq/L (136-147)
[2017-02-09 08:00] LABS: MAGNESIUM 2.1 mg/dL (1.3-2.7); MCH 29.1 PG (29.0-34.0); MCHC 34.3 G/DL (30.0-36.0); MEAN PLAT.VOLUME 9.4 uM^3 (9.0-12.4); PLATELET COUNT 67 K/uL (156-360); RBC DIS.WIDTH-SD 45.5 % (39-53); RED BLOOD COUNT 2.47 M/uL (4.00-5.50)
[2017-02-09 08:02] LABS: GLUCOSE 116 mg/dL (70-99)
[2017-02-09 08:03] LABS: ANION GAP 7 MEQ/L (2-14)
[2017-02-09 08:04] LABS: TOTAL BILIRUBIN 0.4 mg/dL (0.0-1.0)
[2017-02-09 08:05] LABS: ALKALINE PHOSPHATASE 99 IU/L (3-129)
[2017-02-09 08:06] LABS: GFR ESTIMATE (CALCULATED) > 59 mL/min/
[2017-02-09 08:07] LABS: DIRECT BILIRUBIN 0.2 mg/dL (0.0-0.3); UREA NITROGEN (BUN) 32 mg/dL (9-23)
[2017-02-09 08:24] LABS: WHITE BLOOD COUNT 1.8 K/uL (4.1-10.2)
[2017-02-09 09:00] LABS: PREALBUMIN 20.2 mg/dL (10-40); TRIGLYCERIDES 138 MG/DL (Normal: <150)
[2017-02-09 09:43] LABS: ABS NEUTROPHIL COUNT 0.9; ANISOCYTOSIS 1+; ATYPICAL LYMPHOCYTE 0.9 %; BAND NEUTROPHILS 4.6 % (0-8.0); BASOPHILS 2.8 %; EOSINOPHIL ABS CT 0; INSTRUMENT ABS NEUTROPHIL CT 0.8 K/uL; LYMPHOCYTES 35.2 % (15.0-45.0); MICROCYTOSIS 1+; PLAT.SUFFICIENCY DECREASED
[2017-02-09 09:45] LABS: SEG.NEUTROPHILS 45.4 % (46.0-76.0)
[2017-02-09 15:40] VITALS: BP 105/64
[2017-02-09 15:49] LABS: POINT-OF-CARE METER ID UU13113725
[2017-02-09 20:49] LABS: POINT-OF-CARE METER ID UU13113725
[2017-02-09 23:05] VITALS: BP 101/62
[2017-02-10 05:55] LABS: POINT-OF-CARE METER ID UU13113725
[2017-02-10 06:38] VITALS: BP 106/55
[2017-02-10 07:56] LABS: ANION GAP 8 MEQ/L (2-14); CHLORIDE 99 MEQ/L (99-109); GFR ESTIMATE (CALCULATED) > 59 mL/min/; GLUCOSE 123 mg/dL (70-99); MAGNESIUM 2.1 mg/dl (1.3-2.7); SAMPLE HEMOLYSIS CHECK 0; SAMPLE ICTERIC CHECK 0; SAMPLE LIPEMIA CHECK 0; SODIUM 134 MEQ/L (136-147); UREA NITROGEN (BUN) 28 mg/dL (9-23)
[2017-02-10 11:19] LABS: URINE UREA NITROGEN 13574 MG/24 HR
[2017-02-10 12:25] LABS: HEMATOCRIT 26.2 % (38.0-50.0); MCH 29.3 PG (29.0-34.0); MCHC 34.4 G/DL (30.0-36.0); MCV 85.3 FL (86-99); NRBC (%) 0.5 /100 WBC (0-0); RBC DIS.WIDTH-CV 16.4 % (11.8-14.6); RBC DIS.WIDTH-SD 48.7 % (39-53)
[2017-02-10 12:38] LABS: RED BLOOD COUNT 3.07 M/uL (4.00-5.50); WHITE BLOOD COUNT 8.3 K/uL (4.1-10.2)
[2017-02-10 13:46] LABS: ABS NEUTROPHIL COUNT 6.6; ANISOCYTOSIS 1+; EOSINOPHIL ABS CT 0.1; HYPOCHROMASIA 1+; INSTRUMENT ABS NEUTROPHIL CT 5.9 K/uL; MEAN PLAT.VOLUME 9.3 uM^3 (9.0-12.4); PLAT.SUFFICIENCY DECREASED
[2017-02-10 13:50] LABS: PLATELET COUNT 113 K/uL (156-360)
[2017-02-10 14:50] VITALS: BP 102/61
[2017-02-10 23:14] VITALS: BP 116/61
[2017-02-11 06:37] VITALS: BP 104/59
[2017-02-11 08:42] LABS: HEMATOCRIT 21.1 % (38.0-50.0); MCH 29.3 PG (29.0-34.0); MCHC 33.6 G/DL (30.0-36.0); MCV 87.2 FL (86-99); NRBC (%) 0.3 /100 WBC (0-0); RBC DIS.WIDTH-CV 16.7 % (11.8-14.6); RBC DIS.WIDTH-SD 51.7 % (39-53)
[2017-02-11 08:43] LABS: RED BLOOD COUNT 2.42 M/uL (4.00-5.50); WHITE BLOOD COUNT 13.9 K/uL (4.1-10.2)
[2017-02-11 09:11] LABS: ANION GAP 8 MEQ/L (2-14); CHLORIDE 101 MEQ/L (99-109); GFR ESTIMATE (CALCULATED) > 59 mL/min/; MAGNESIUM 2.2 mg/dl (1.3-2.7); POTASSIUM 4.2 MEQ/L (3.7-5.4); SAMPLE HEMOLYSIS CHECK 0; SAMPLE ICTERIC CHECK 0; SAMPLE LIPEMIA CHECK 0; SODIUM 135 MEQ/L (136-147); UREA NITROGEN (BUN) 31 mg/dL (9-23)
[2017-02-11 09:15] LABS: GLUCOSE 89 mg/dL (70-99)
[2017-02-11 09:18] LABS: ABS NEUTROPHIL COUNT 11.3; ANISOCYTOSIS 2+; ATYPICAL LYMPHOCYTE 2.8 %; BASOPHILS 3.8 %; EOSINOPHIL ABS CT 0; LYMPHOCYTES 11.2 % (15.0-45.0); MEAN PLAT.VOLUME 9.9 uM^3 (9.0-12.4); MICROCYTOSIS 2+; NUCLEATED RBC'S 0.9; PLAT.SUFFICIENCY DECREASED; PLATELET COUNT 88 K/uL (156-360); POIKILOCYTOSIS 1+; POLYCHROMASIA 1+
[2017-02-11 09:20] LABS: BAND NEUTROPHILS 0.9 % (0-8.0); SEG.NEUTROPHILS 80.4 % (46.0-76.0)
[2017-02-11 14:44] LABS: MCV 84.6 FL (86-99)
[2017-02-11 14:50] VITALS: BP 107/63
[2017-02-11 22:53] VITALS: BP 109/63
[2017-02-12 07:59] VITALS: BP 107/67
[2017-02-12 08:10] LABS: HEMATOCRIT 21.4 % (38.0-50.0); MCH 29.3 PG (29.0-34.0); MCHC 34.1 G/DL (30.0-36.0); MCV 85.9 FL (86-99); MEAN PLAT.VOLUME 9.1 uM^3 (9.0-12.4); NRBC (%) 0.1 /100 WBC (0-0); PLATELET COUNT 105 K/uL (156-360); RBC DIS.WIDTH-CV 17.1 % (11.8-14.6); RBC DIS.WIDTH-SD 51.5 % (39-53); RED BLOOD COUNT 2.49 M/uL (4.00-5.50)
[2017-02-12 08:14] LABS: WHITE BLOOD COUNT 22.1 K/uL (4.1-10.2)
[2017-02-12 08:22] LABS: ANION GAP 7 MEQ/L (2-14); CHLORIDE 97 MEQ/L (99-109); GFR ESTIMATE (CALCULATED) > 59 mL/min/; POTASSIUM 3.9 MEQ/L (3.7-5.4); SAMPLE HEMOLYSIS CHECK 0; SAMPLE ICTERIC CHECK 0; SAMPLE LIPEMIA CHECK 0; SODIUM 133 MEQ/L (136-147); UREA NITROGEN (BUN) 21 mg/dL (9-23)
[2017-02-12 08:26] LABS: GLUCOSE 56 mg/dL (70-99); MAGNESIUM 1.7 mg/dl (1.3-2.7)
[2017-02-12] MEDS ORDERED: BACTRIM,SEPT1 TABLET PO (10:18)
[2017-02-12] MEDS ORDERED: MOVANTIK25 MG PO (10:18)
[2017-02-12] MEDS ORDERED: FUROSEMIDE40 MG PO (10:18)
[2017-02-12] MEDS ORDERED: ALLOPURINOL100 MG PO (10:18)
[2017-02-12] MEDS ORDERED: ACYCLOVIR200 MG PO (10:18)
[2017-02-12] MEDS ORDERED: DITROPAN5 MG PO (10:18)
[2017-02-12] MEDS ORDERED: OXYCODONE HCL5 MG PO (10:44)
[2017-02-12] MEDS ORDERED: MORPHINE SULFAT15 M1 PO (10:44)
[2017-02-12 11:45] LABS: POINT-OF-CARE METER ID UU13113725
== END 2017-02-12 15:48 | disposition home health service (06) | DRG 823 ==
LOC: EME 00:32 → 5EAST 05:14 → 3EAST 05:14 → EDOF 05:14 → 3EAST 06:01 → 5EAST 01-29 17:43
PROVIDERS: Hospitalist; Internal Medicine; Internal Medicine Hematology & Oncology; Internal Medicine Nephrology; Physician Assistant; Radiology Diagnostic Radiology; Student in an Organized Health Care Education/Training Program; Urology
PROC: 0T7D8ZZ Dilation of Urethra, Via Natural or Artificial Opening Endoscopic (ICD-10-PCS; principal; 2017-01-12)
PROC: 0TBB8ZX Excision of Bladder, Via Natural or Artificial Opening Endoscopic, Diagnostic (ICD-10-PCS; principal; 2017-01-12)
PROC: 0T9B70Z Drainage of Bladder with Drainage Device, Via Natural or Artificial Opening (ICD-10-PCS; principal; 2017-01-12)
PROC: 0T9030Z Drainage of Right Kidney with Drainage Device, Percutaneous Approach (ICD-10-PCS; 2017-01-21)
PROC: 0T9130Z Drainage of Left Kidney with Drainage Device, Percutaneous Approach (ICD-10-PCS; 2017-01-24)
PROC: 07DR3ZX Extraction of Iliac Bone Marrow, Percutaneous Approach, Diagnostic (ICD-10-PCS; 2017-01-28)
PROC: 5A1D60Z (ICD-10-PCS; 2017-01-29)
PROC: 02HV33Z Insertion of Infusion Device into Superior Vena Cava, Percutaneous Approach (ICD-10-PCS; 2017-01-29)
PROC: 02HV33Z Insertion of Infusion Device into Superior Vena Cava, Percutaneous Approach (ICD-10-PCS; 2017-01-30)
PROC: 3E04305 Introduction of Other Antineoplastic into Central Vein, Percutaneous Approach (ICD-10-PCS; 2017-01-30)
PROC: 3E0436Z Introduction of Nutritional Substance into Central Vein, Percutaneous Approach (ICD-10-PCS; 2017-01-31)
PROC: 0T25X0Z Change Drainage Device in Kidney, External Approach (ICD-10-PCS; 2017-02-01)
PROC: 0D9E8ZZ Drainage of Large Intestine, Via Natural or Artificial Opening Endoscopic (ICD-10-PCS; 2017-02-02)
DX: C85.13 Unspecified B-cell lymphoma, intra-abdominal lymph nodes (principal); C85.16 Unspecified B-cell lymphoma, intrapelvic lymph nodes; C85.19 Unspecified B-cell lymphoma, extranodal and solid organ sites; R31.0 Gross hematuria; N35.9 Urethral stricture, unspecified; I87.8 Other specified disorders of veins; I12.0 Hypertensive chronic kidney disease with stage 5 chronic kidney disease or end stage renal disease; N18.6 End stage renal disease; N13.30 Unspecified hydronephrosis; N99.522 Malfunction of incontinent external stoma of urinary tract; Y83.8 Other surgical procedures as the cause of abnormal reaction of the patient, or of later complication, without mention of misadventure at the time of the procedure; F17.210 Nicotine dependence, cigarettes, uncomplicated; E66.9 Obesity, unspecified; Z68.29 Body mass index [BMI] 29.0-29.9, adult; N17.9 Acute kidney failure, unspecified; N13.8 Other obstructive and reflux uropathy; Z91.19 Patient's noncompliance with other medical treatment and regimen; K59.8 Other specified functional intestinal disorders; K56.7 Ileus, unspecified; K59.03 Drug induced constipation; T40.2X5A Adverse effect of other opioids, initial encounter; R33.8 Other retention of urine; E43 Unspecified severe protein-calorie malnutrition; D62 Acute posthemorrhagic anemia; N32.89 Other specified disorders of bladder; R18.8 Other ascites; E87.1 Hypo-osmolality and hyponatremia; E87.2 Acidosis; I27.2 Other secondary pulmonary hypertension; J90 Pleural effusion, not elsewhere classified; E87.70 Fluid overload, unspecified; D72.828 Other elevated white blood cell count; T45.8X5A Adverse effect of other primarily systemic and hematological agents, initial encounter; D70.9 Neutropenia, unspecified; Z99.2 Dependence on renal dialysis
CPT/HCPCS: 36600; 50433; 50435; 71010; 71250; 74000; 74176; 76705; 76770; 77012; 80048; 80048 91; 80053; 80074; 80076; 81003; 81015; 81050; 82232; 82248; 82533 91; 82803; 82948; 83605; 83615; 83735; 83935; 84100; 84134; 84300; 84478; 84540; 84550; 84630 90; 85014; 85018; 85025; 85027; 85610; 85651; 85730; 85999; 86706; 86900; 86901; 87086; 88184 90; 88185 90; 88189 90; 88237 90; 88264 90; 88280 90; 88291 90; 88305; 88341 TC; 88342 TC; 93005; 93306; 94640; 94640 76; 94799; 97530 GP; 99202; 99281; 99284; 99285; C1752; C1769; C1894; G0103; J0360; J0690; J1100; J1170; J1200; J1364; J1447; J1644; J1815; J1940; J2250; J2270; J2405; J2469; J2710; J2930; J3010; J3480; J7030; J7040; J7050; J7070; J7120; J7512; J9000; J9070; J9310; J9370; S0020

== ENCOUNTER 2017-02-17 09:38 | Inpatient (IN) | payer OTHER ==
[2017-02-17] VITALS (9 sets, daily range): BP systolic 105–126; BP diastolic 58–74
[~2017-02-17] VITALS: Ht 175.3 cm; Wt 69.4 kg
[~2017-02-17 09:38] MED LIST changes: +ACYCLOVIR200 MG PO; +ALLOPURINOL100 MG PO; +DITROPAN5 MG PO; +FUROSEMIDE40 MG PO; +MORPHINE SULFAT15 M1 PO; +MOVANTIK25 MG PO; +OXYCODONE HCL5 MG PO
[2017-02-17 11:17] LABS: ADD MIUA? YES; BILIRUBIN NEGATIVE; BLOOD NEGATIVE; COLOR YELLOW ((YELLOW)); GLUCOSE (STRIP) NEGATIVE; KETONES NEGATIVE; LEUKOCYTES NEGATIVE; NITRITE NEGATIVE; PROTEIN (STRIP) >=500; SPECIFIC GRAVITY 1.022 (1.000-1.030); UROBILINOGEN 0.2 MG/DL (0.2-1.0)
[2017-02-17 11:19] LABS: HEMATOCRIT 18.7 % (38.0-50.0); MCH 29.1 PG (29.0-34.0); MCHC 35.8 G/DL (30.0-36.0); MEAN PLAT.VOLUME 8.7 uM^3 (9.0-12.4); RBC DIS.WIDTH-CV 16.1 % (11.8-14.6); RBC DIS.WIDTH-SD 47.7 % (39-53)
[2017-02-17 11:22] LABS: MCV 81.3 FL (86-99); PLATELET COUNT 271 K/uL (156-360)
[2017-02-17 11:27] LABS: CHLORIDE 90 mEq/L (99-109); POTASSIUM 3.6 mEq/L (3.7-5.4)
[2017-02-17 11:28] LABS: SODIUM 126 mEq/L (136-147)
[2017-02-17 11:29] LABS: GLUCOSE 108 mg/dL (70-99)
[2017-02-17 11:30] LABS: ANION GAP 13 MEQ/L (2-14)
[2017-02-17 11:33] LABS: BACTERIA 1+ /HPF; EPITHELIAL CELLS NONE SEEN /HPF; MUCUS NONE SEEN /LPF; RED BLOOD CELLS TNTC /HPF (0-5); UCUL ADDED? YES; WHITE BLOOD CELLS TNTC /HPF (0-5)
[2017-02-17 11:33] LABS: GFR ESTIMATE (CALCULATED) > 59 mL/min/; UREA NITROGEN (BUN) 14 mg/dL (9-23)
[2017-02-17 12:12] LABS: EOSINOPHIL (%) 0 % (0-5); HEMATOLOGY COMMENT 1 SMEAR COMPATIBLE; IMMATURE GRANULOCYTE COUNT 0.2 K/uL; INSTRUMENT ABS NEUTROPHIL CT 9.4 K/uL; LYMPHOCYTE COUNT 0.5 K/uL (1.0-2.8); MONOCYTE (%) 8.1 % (3-12); MONOCYTE COUNT 0.9 K/uL (0-0.8); NEUTROPHIL (%) 85.6 % (45-76); NEUTROPHIL COUNT 9.4 K/uL (1.8-6.4)
[2017-02-17] MEDS ORDERED: ACYCLOVIR400 MG PO (12:49)
[2017-02-17] MEDS ORDERED: ALLOPURINOL100 MG PO (12:50)
[2017-02-17] MEDS ORDERED: AMITIZA24 MICROGR PO (12:51)
[2017-02-17] MEDS ORDERED: LINZESS145 MCG PO (12:51)
[2017-02-18] VITALS (8 sets, daily range): BP systolic 109–140; BP diastolic 63–82
[2017-02-18 07:16] LABS: EOSINOPHIL (%) 0 % (0-5); HEMATOCRIT 23.5 % (38.0-50.0); IMMATURE GRANULOCYTE (%) 1.3 % (0.0-0.7); IMMATURE GRANULOCYTE COUNT 0.1 K/uL; INSTRUMENT ABS NEUTROPHIL CT 8.1 K/uL; LYMPHOCYTE COUNT 0.6 K/uL (1.0-2.8); MCH 28.3 PG (29.0-34.0); MCHC 35.3 G/DL (30.0-36.0); MCV 80.2 FL (86-99); MEAN PLAT.VOLUME 8.4 uM^3 (9.0-12.4); MONOCYTE (%) 8.3 % (3-12); MONOCYTE COUNT 0.8 K/uL (0-0.8); NEUTROPHIL COUNT 8.1 K/uL (1.8-6.4); PLATELET COUNT 272 K/uL (156-360); RBC DIS.WIDTH-CV 16.5 % (11.8-14.6); RBC DIS.WIDTH-SD 47.7 % (39-53); WHITE BLOOD COUNT 9.7 K/uL (4.1-10.2)
[2017-02-18 07:18] LABS: RED BLOOD COUNT 2.93 M/uL (4.00-5.50)
[2017-02-18 07:49] LABS: ALKALINE PHOSPHATASE 69 IU/L (3-129); ANION GAP 12 MEQ/L (2-14); CHLORIDE 92 MEQ/L (99-109); GFR ESTIMATE (CALCULATED) > 59 mL/min/; GLUCOSE 82 mg/dL (70-99); POTASSIUM 3.1 MEQ/L (3.7-5.4); SAMPLE HEMOLYSIS CHECK 0; SAMPLE ICTERIC CHECK 0; SAMPLE LIPEMIA CHECK 0; SODIUM 130 MEQ/L (136-147); TOTAL BILIRUBIN 1.1 MG/DL (0.0-1.0); UREA NITROGEN (BUN) 10 mg/dL (9-23)
[2017-02-19 03:38] VITALS: BP 139/76
[2017-02-19 06:27] LABS: EOSINOPHIL (%) 0.1 % (0-5); HEMATOCRIT 24.3 % (38.0-50.0); IMMATURE GRANULOCYTE (%) 1.6 % (0.0-0.7); IMMATURE GRANULOCYTE COUNT 0.2 K/uL; INSTRUMENT ABS NEUTROPHIL CT 10.5 K/uL; LYMPHOCYTE COUNT 0.9 K/uL (1.0-2.8); MCH 28.3 PG (29.0-34.0); MCHC 35.4 G/DL (30.0-36.0); MCV 79.9 FL (86-99); MEAN PLAT.VOLUME 8.2 uM^3 (9.0-12.4); MONOCYTE (%) 7.1 % (3-12); MONOCYTE COUNT 0.9 K/uL (0-0.8); NEUTROPHIL COUNT 10.5 K/uL (1.8-6.4); PLATELET COUNT 302 K/uL (156-360); RBC DIS.WIDTH-CV 16.3 % (11.8-14.6); RBC DIS.WIDTH-SD 47.2 % (39-53); RED BLOOD COUNT 3.04 M/uL (4.00-5.50); WHITE BLOOD COUNT 12.5 K/uL (4.1-10.2)
[2017-02-19 06:51] VITALS: BP 131/75
[2017-02-19 06:58] LABS: ANION GAP 10 MEQ/L (2-14); CHLORIDE 94 MEQ/L (99-109); GFR ESTIMATE (CALCULATED) > 59 mL/min/; GLUCOSE 83 mg/dL (70-99); SAMPLE HEMOLYSIS CHECK 0; SAMPLE ICTERIC CHECK 0; SAMPLE LIPEMIA CHECK 0; SODIUM 129 MEQ/L (136-147); UREA NITROGEN (BUN) 9 mg/dL (9-23)
[2017-02-19 06:59] LABS: POTASSIUM 3.8 MEQ/L (3.7-5.4)
[2017-02-19 10:43] VITALS: BP 131/72
[2017-02-19 11:16] LABS: FERRITIN 645 NG/ML (22-322)
[2017-02-19 15:15] VITALS: BP 127/80
[2017-02-19 20:40] VITALS: BP 120/78
[2017-02-19 23:50] VITALS: BP 122/76
[2017-02-20 04:42] VITALS: BP 126/79
[2017-02-20 06:33] LABS: EOSINOPHIL (%) 0 % (0-5); HEMATOCRIT 22.8 % (38.0-50.0); IMMATURE GRANULOCYTE (%) 1.1 % (0.0-0.7); IMMATURE GRANULOCYTE COUNT 0.1 K/uL; INSTRUMENT ABS NEUTROPHIL CT 7.4 K/uL; LYMPHOCYTE COUNT 0.4 K/uL (1.0-2.8); MCH 29.3 PG (29.0-34.0); MCV 81.4 FL (86-99); MEAN PLAT.VOLUME 8.1 uM^3 (9.0-12.4); MONOCYTE (%) 3.8 % (3-12); MONOCYTE COUNT 0.3 K/uL (0-0.8); NEUTROPHIL (%) 90.3 % (45-76); NEUTROPHIL COUNT 7.4 K/uL (1.8-6.4); PLATELET COUNT 317 K/uL (156-360); RBC DIS.WIDTH-CV 16.1 % (11.8-14.6); RBC DIS.WIDTH-SD 47.5 % (39-53); WHITE BLOOD COUNT 8.2 K/uL (4.1-10.2)
[2017-02-20 07:04] VITALS: BP 137/82
[2017-02-20 07:11] LABS: ANION GAP 11 MEQ/L (2-14); CHLORIDE 96 MEQ/L (99-109); GFR ESTIMATE (CALCULATED) > 59 mL/min/; POTASSIUM 4.5 MEQ/L (3.7-5.4); SAMPLE HEMOLYSIS CHECK 0; SAMPLE ICTERIC CHECK 0; SAMPLE LIPEMIA CHECK 0; SODIUM 129 MEQ/L (136-147); UREA NITROGEN (BUN) 15 mg/dL (9-23)
[2017-02-20 07:15] LABS: GLUCOSE 137 mg/dL (70-99)
[2017-02-20 11:12] VITALS: BP 120/71
[2017-02-20 15:39] VITALS: BP 127/72
[2017-02-20 23:06] VITALS: BP 122/75
[2017-02-21] VITALS (13 sets, daily range): BP systolic 118–143; BP diastolic 66–75
[2017-02-21 06:36] LABS: EOSINOPHIL (%) 0 % (0-5); IMMATURE GRANULOCYTE (%) 1.3 % (0.0-0.7); IMMATURE GRANULOCYTE COUNT 0.2 K/uL; INSTRUMENT ABS NEUTROPHIL CT 11.4 K/uL; LYMPHOCYTE COUNT 0.5 K/uL (1.0-2.8); MCH 28.7 PG (29.0-34.0); MCV 82.1 FL (86-99); MEAN PLAT.VOLUME 7.8 uM^3 (9.0-12.4); MONOCYTE (%) 5.2 % (3-12); MONOCYTE COUNT 0.7 K/uL (0-0.8); NEUTROPHIL (%) 89.8 % (45-76); NEUTROPHIL COUNT 11.4 K/uL (1.8-6.4); PLATELET COUNT 291 K/uL (156-360); RBC DIS.WIDTH-CV 16.4 % (11.8-14.6); RBC DIS.WIDTH-SD 48.5 % (39-53); RED BLOOD COUNT 2.68 M/uL (4.00-5.50)
[2017-02-21 06:40] LABS: WHITE BLOOD COUNT 12.7 K/uL (4.1-10.2)
[2017-02-21 07:14] LABS: ANION GAP 12 MEQ/L (2-14); CHLORIDE 102 MEQ/L (99-109); GFR ESTIMATE (CALCULATED) > 59 mL/min/; SAMPLE HEMOLYSIS CHECK 0; SAMPLE ICTERIC CHECK 0; SAMPLE LIPEMIA CHECK 0; SODIUM 135 MEQ/L (136-147); UREA NITROGEN (BUN) 17 mg/dL (9-23)
[2017-02-21 07:16] LABS: GLUCOSE 99 mg/dL (70-99); POTASSIUM 3.5 MEQ/L (3.7-5.4)
[2017-02-22 07:06] VITALS: BP 133/70
[2017-02-22 07:30] LABS: EOSINOPHIL (%) 0 % (0-5); HEMATOCRIT 27.5 % (38.0-50.0); IMMATURE GRANULOCYTE (%) 0.8 % (0.0-0.7); IMMATURE GRANULOCYTE COUNT 0.1 K/uL; INSTRUMENT ABS NEUTROPHIL CT 8.4 K/uL; LYMPHOCYTE COUNT 0.5 K/uL (1.0-2.8); MCHC 34.2 G/DL (30.0-36.0); MCV 81.8 FL (86-99); MEAN PLAT.VOLUME 7.9 uM^3 (9.0-12.4); MONOCYTE (%) 5.9 % (3-12); MONOCYTE COUNT 0.6 K/uL (0-0.8); NEUTROPHIL (%) 87.6 % (45-76); NEUTROPHIL COUNT 8.4 K/uL (1.8-6.4); PLATELET COUNT 269 K/uL (156-360); RBC DIS.WIDTH-CV 15.8 % (11.8-14.6); RBC DIS.WIDTH-SD 46.3 % (39-53); WHITE BLOOD COUNT 9.6 K/uL (4.1-10.2)
[2017-02-22 07:41] LABS: RED BLOOD COUNT 3.36 M/uL (4.00-5.50)
[2017-02-22 08:05] LABS: ANION GAP 9 MEQ/L (2-14); CHLORIDE 104 MEQ/L (99-109); GFR ESTIMATE (CALCULATED) > 59 mL/min/; GLUCOSE 88 mg/dL (70-99); POTASSIUM 3.6 MEQ/L (3.7-5.4); SAMPLE HEMOLYSIS CHECK 0; SAMPLE ICTERIC CHECK 0; SAMPLE LIPEMIA CHECK 0; SODIUM 139 MEQ/L (136-147); UREA NITROGEN (BUN) 22 mg/dL (9-23)
[2017-02-22 16:42] VITALS: BP 119/69
[2017-02-23 00:29] VITALS: BP 128/77
[2017-02-23 07:24] VITALS: BP 131/75
[2017-02-23 07:42] LABS: EOSINOPHIL (%) 0 % (0-5); HEMATOCRIT 28.4 % (38.0-50.0); IMMATURE GRANULOCYTE (%) 0.8 % (0.0-0.7); IMMATURE GRANULOCYTE COUNT 0.1 K/uL; INSTRUMENT ABS NEUTROPHIL CT 7.7 K/uL; LYMPHOCYTE COUNT 0.5 K/uL (1.0-2.8); MCH 28.1 PG (29.0-34.0); MCHC 34.5 G/DL (30.0-36.0); MCV 81.4 FL (86-99); MEAN PLAT.VOLUME 7.9 uM^3 (9.0-12.4); MONOCYTE (%) 2.4 % (3-12); MONOCYTE COUNT 0.2 K/uL (0-0.8); NEUTROPHIL (%) 91.2 % (45-76); NEUTROPHIL COUNT 7.7 K/uL (1.8-6.4); PLATELET COUNT 226 K/uL (156-360); RBC DIS.WIDTH-CV 15.8 % (11.8-14.6); RBC DIS.WIDTH-SD 45.4 % (39-53); RED BLOOD COUNT 3.49 M/uL (4.00-5.50); WHITE BLOOD COUNT 8.5 K/uL (4.1-10.2)
[2017-02-23 08:25] LABS: ANION GAP 10 MEQ/L (2-14); CHLORIDE 99 MEQ/L (99-109); GFR ESTIMATE (CALCULATED) > 59 mL/min/; GLUCOSE 75 mg/dL (70-99); POTASSIUM 4.2 MEQ/L (3.7-5.4); SAMPLE HEMOLYSIS CHECK 0; SAMPLE ICTERIC CHECK 0; SAMPLE LIPEMIA CHECK 0; SODIUM 140 MEQ/L (136-147); UREA NITROGEN (BUN) 21 mg/dL (9-23)
[2017-02-23] MEDS ORDERED: METOCLOPRAMIDE10 MG PO (12:22)
[2017-02-23] MEDS ORDERED: ONDANSETRON ODT4 MG PO (12:22)
[2017-02-23] MEDS ORDERED: GABAPENTIN100 MG PO (12:22)
[2017-02-23] MEDS ORDERED: HYDROMORPHONE HC4 MG PO (12:22)
[2017-02-23] MEDS ORDERED: POLYETHYLENE GL17 GM PO (12:22)
[2017-02-23] MEDS ORDERED: MORPHINE SULFAT15 M1 PO (12:22)
[2017-02-23] MEDS ORDERED: DELTASONE20 M1 PO (12:29)
== END 2017-02-23 14:52 | disposition home health service (06) | DRG 840 ==
LOC: EME 09:38 → 5EAST 12:23 → EDOF 12:23 → 5EAST 14:10
PROVIDERS: Emergency Medicine; Family Medicine
PROC: 30233N1 Transfusion of Nonautologous Red Blood Cells into Peripheral Vein, Percutaneous Approach (ICD-10-PCS; principal; 2017-02-17)
DX: C85.10 Unspecified B-cell lymphoma, unspecified site (principal); E43 Unspecified severe protein-calorie malnutrition; N17.9 Acute kidney failure, unspecified; C77.8 Secondary and unspecified malignant neoplasm of lymph nodes of multiple regions; C79.11 Secondary malignant neoplasm of bladder; D64.81 Anemia due to antineoplastic chemotherapy; C79.00 Secondary malignant neoplasm of unspecified kidney and renal pelvis; E87.1 Hypo-osmolality and hyponatremia; D63.0 Anemia in neoplastic disease; E87.6 Hypokalemia; E87.70 Fluid overload, unspecified; I89.0 Lymphedema, not elsewhere classified; N50.89 Other specified disorders of the male genital organs; R19.09 Other intra-abdominal and pelvic swelling, mass and lump; N32.89 Other specified disorders of bladder; Z93.6 Other artificial openings of urinary tract status; R33.8 Other retention of urine; F17.210 Nicotine dependence, cigarettes, uncomplicated; R31.0 Gross hematuria; R39.15 Urgency of urination; N39.0 Urinary tract infection, site not specified; N48.89 Other specified disorders of penis
CPT/HCPCS: 74176; 80048; 80053; 81003; 82728; 82948; 85025; 86900; 86901; 86920; 87086; 99281; 99285; J1100; J1200; J1940; J2270; J2405; J2469; J2930; J7030; J7040; J7050; J7512; J9000; J9070; J9310; J9370; P9016

== ENCOUNTER 2017-03-14 21:50 | Inpatient (IN) | payer OTHER ==
[~2017-03-14] VITALS: Ht 172.7 cm; Wt 84.7 kg
[~2017-03-14 21:50] MED LIST changes: +ACYCLOVIR400 MG PO; +AMITIZA24 MICROGR PO; +DELTASONE20 M1 PO; +GABAPENTIN100 MG PO; +HYDROMORPHONE HC4 MG PO; +LINZESS145 MCG PO; +METOCLOPRAMIDE10 MG PO; +ONDANSETRON ODT4 MG PO; +POLYETHYLENE GL17 GM PO
[2017-03-14 23:13] LABS: BASOPHIL COUNT 0.1 K/uL (0-0.1); EOSINOPHIL (%) 0 % (0-5); IMMATURE GRANULOCYTE (%) 3.5 % (0.0-0.7); IMMATURE GRANULOCYTE COUNT 1.5 K/uL; INSTRUMENT ABS NEUTROPHIL CT 37.4 K/uL; LYMPHOCYTE COUNT 0.4 K/uL (1.0-2.8); MEAN PLAT.VOLUME 8.3 uM^3 (9.0-12.4); MONOCYTE COUNT 2.5 K/uL (0-0.8); NEUTROPHIL (%) 89.5 % (45-76); NEUTROPHIL COUNT 37.4 K/uL (1.8-6.4); NRBC (%) 0.1 /100 WBC (0-0); PLATELET COUNT 192 K/uL (156-360)
[2017-03-14 23:16] LABS: HEMATOCRIT 22.2 % (38.0-50.0); MCH 28.9 PG (29.0-34.0); MCV 80.1 FL (86-99); RBC DIS.WIDTH-CV 17.2 % (11.8-14.6); RBC DIS.WIDTH-SD 47.3 % (39-53)
[2017-03-14 23:17] LABS: RED BLOOD COUNT 2.77 M/uL (4.00-5.50); WHITE BLOOD COUNT 42.1 K/uL (4.1-10.2)
[2017-03-14 23:21] LABS: CHLORIDE 84 mEq/L (99-109)
[2017-03-14 23:22] LABS: SODIUM 126 mEq/L (136-147)
[2017-03-14 23:24] LABS: GLUCOSE 119 mg/dL (70-99)
[2017-03-14 23:25] LABS: ANION GAP 16 MEQ/L (2-14)
[2017-03-14 23:26] LABS: TOTAL BILIRUBIN 0.7 mg/dL (0.0-1.0)
[2017-03-14 23:27] LABS: ALKALINE PHOSPHATASE 51 IU/L (3-129); GFR ESTIMATE (CALCULATED) > 59 mL/min/
[2017-03-14 23:29] LABS: UREA NITROGEN (BUN) 39 mg/dL (9-23)
[2017-03-14 23:36] LABS: TROP-I INTERPRETATION NEGATIVE; TROPONIN-I < 0.01 ng/mL (0.0-0.30)
[2017-03-15] MEDS ORDERED: DELTASONE20 M1 PO (00:14)
[2017-03-15] MEDS ORDERED: NORMAL SALINE FL5 ML IV (00:15)
[2017-03-15] MEDS ORDERED: COMPAZINE10 MG PO (00:16)
[2017-03-15 00:28] LABS: ADD MIUA? YES; BILIRUBIN NEGATIVE; BLOOD MODERATE; BLOOD SMALL; COLOR YELLOW ((YELLOW)); GLUCOSE (STRIP) NEGATIVE; KETONES NEGATIVE; LEUKOCYTES LARGE; LEUKOCYTES MODERATE; NITRITE POSITIVE; PROTEIN (STRIP) 100; PROTEIN (STRIP) 30; SPECIFIC GRAVITY 1.005 (1.000-1.030); UROBILINOGEN 0.2 MG/DL (0.2-1.0)
[2017-03-15 00:36] LABS: BACTERIA NONE SEEN /HPF; EPITHELIAL CELLS NONE SEEN /HPF; MUCUS NONE SEEN /LPF; UCUL ADDED? NO
[2017-03-15 00:50] LABS: BACTERIA 3+ /HPF; EPITHELIAL CELLS RARE /HPF; MUCUS TRACE /LPF; UCUL ADDED? YES; WHITE BLOOD CELLS 15-20 /HPF (0-5)
[2017-03-15 02:05] VITALS: BP 126/69
[2017-03-15 08:00] VITALS: BP 132/77
[2017-03-15 11:18] VITALS: BP 137/74
[2017-03-15 14:25] VITALS: BP 134/76
[2017-03-15 18:56] VITALS: BP 136/75
[2017-03-15 20:26] LABS: ANION GAP 15 MEQ/L (2-14); CHLORIDE 84 MEQ/L (99-109); GFR ESTIMATE (CALCULATED) > 59 mL/min/; GLUCOSE 168 mg/dL (70-99); SAMPLE HEMOLYSIS CHECK 0; SAMPLE ICTERIC CHECK 0; SAMPLE LIPEMIA CHECK 0; SODIUM 123 MEQ/L (136-147); UREA NITROGEN (BUN) 44 mg/dL (9-23)
[2017-03-16] VITALS (11 sets, daily range): BP systolic 122–150; BP diastolic 70–87
[2017-03-16 06:28] LABS: EOSINOPHIL (%) 0 % (0-5); HEMATOCRIT 19.4 % (38.0-50.0); IMMATURE GRANULOCYTE (%) 3.6 % (0.0-0.7); IMMATURE GRANULOCYTE COUNT 1.3 K/uL; INSTRUMENT ABS NEUTROPHIL CT 33.6 K/uL; LYMPHOCYTE COUNT 0.3 K/uL (1.0-2.8); MCH 28.9 PG (29.0-34.0); MCHC 35.1 G/DL (30.0-36.0); MCV 82.6 FL (86-99); MONOCYTE COUNT 1.1 K/uL (0-0.8); NEUTROPHIL (%) 92.5 % (45-76); NEUTROPHIL COUNT 33.6 K/uL (1.8-6.4); NRBC (%) 0.1 /100 WBC (0-0); PLATELET COUNT 206 K/uL (156-360); RBC DIS.WIDTH-CV 18.6 % (11.8-14.6); RBC DIS.WIDTH-SD 51.8 % (39-53); RED BLOOD COUNT 2.35 M/uL (4.00-5.50)
[2017-03-16 06:31] LABS: WHITE BLOOD COUNT 36.3 K/uL (4.1-10.2)
[2017-03-16 06:41] LABS: ANION GAP 12 MEQ/L (2-14); CHLORIDE 86 MEQ/L (99-109); GFR ESTIMATE (CALCULATED) > 59 mL/min/; GLUCOSE 167 mg/dL (70-99); POTASSIUM 3.5 MEQ/L (3.7-5.4); SAMPLE HEMOLYSIS CHECK 0; SAMPLE ICTERIC CHECK 0; SAMPLE LIPEMIA CHECK 0; SODIUM 123 MEQ/L (136-147); UREA NITROGEN (BUN) 54 mg/dL (9-23)
[2017-03-16 12:32] LABS: MCH 28.9 PG (29.0-34.0); MCHC 35.3 G/DL (30.0-36.0); MCV 81.9 FL (86-99); MEAN PLAT.VOLUME 8.8 uM^3 (9.0-12.4); NRBC (%) 0.1 /100 WBC (0-0); PLATELET COUNT 218 K/uL (156-360); RBC DIS.WIDTH-CV 18.6 % (11.8-14.6); RBC DIS.WIDTH-SD 51.4 % (39-53); RED BLOOD COUNT 2.32 M/uL (4.00-5.50)
[2017-03-16 12:42] LABS: WHITE BLOOD COUNT 35.5 K/uL (4.1-10.2)
[2017-03-16 14:09] LABS: ANION GAP 12 MEQ/L (2-14); CHLORIDE 83 MEQ/L (99-109); GFR ESTIMATE (CALCULATED) > 59 mL/min/; GLUCOSE 213 mg/dL (70-99); POTASSIUM 3.6 MEQ/L (3.7-5.4); SAMPLE HEMOLYSIS CHECK 0; SAMPLE ICTERIC CHECK 0; SAMPLE LIPEMIA CHECK 0; SODIUM 118 MEQ/L (136-147); UREA NITROGEN (BUN) 55 mg/dL (9-23)
[2017-03-16 18:31] LABS: ANION GAP 16 MEQ/L (2-14); CHLORIDE 82 MEQ/L (99-109); GFR ESTIMATE (CALCULATED) 55 mL/min/; GLUCOSE 151 mg/dL (70-99); POTASSIUM 3.9 MEQ/L (3.7-5.4); SAMPLE HEMOLYSIS CHECK 0; SAMPLE ICTERIC CHECK 0; SAMPLE LIPEMIA CHECK 0; SODIUM 122 MEQ/L (136-147); UREA NITROGEN (BUN) 58 mg/dL (9-23)
[2017-03-16 20:30] LABS: ANION GAP 12 MEQ/L (2-14); CHLORIDE 85 MEQ/L (99-109); POTASSIUM 3.7 MEQ/L (3.7-5.4); SAMPLE HEMOLYSIS CHECK 0; SAMPLE ICTERIC CHECK 0; SAMPLE LIPEMIA CHECK 0; SODIUM 121 MEQ/L (136-147)
[2017-03-16 20:35] LABS: GFR ESTIMATE (CALCULATED) 55 mL/min/; GLUCOSE 147 mg/dL (70-99); UREA NITROGEN (BUN) 57 mg/dL (9-23)
[2017-03-17] VITALS (10 sets, daily range): BP systolic 128–154; BP diastolic 71–93
[2017-03-17 07:16] LABS: ANION GAP 14 MEQ/L (2-14); CHLORIDE 86 MEQ/L (99-109); GFR ESTIMATE (CALCULATED) > 59 mL/min/; GLUCOSE 116 mg/dL (70-99); POTASSIUM 3.4 MEQ/L (3.7-5.4); SAMPLE HEMOLYSIS CHECK 0; SAMPLE ICTERIC CHECK 0; SAMPLE LIPEMIA CHECK 0; SODIUM 124 MEQ/L (136-147); UREA NITROGEN (BUN) 59 mg/dL (9-23)
[2017-03-17 08:46] LABS: ANION GAP 14 MEQ/L (2-14); CHLORIDE 84 MEQ/L (99-109); GFR ESTIMATE (CALCULATED) > 59 mL/min/; GLUCOSE 144 mg/dL (70-99); POTASSIUM 3.8 MEQ/L (3.7-5.4); SAMPLE HEMOLYSIS CHECK 0; SAMPLE ICTERIC CHECK 0; SAMPLE LIPEMIA CHECK 0; SODIUM 121 MEQ/L (136-147); UREA NITROGEN (BUN) 60 mg/dL (9-23)
[2017-03-17 09:00] LABS: EOSINOPHIL (%) 0 % (0-5); HEMATOCRIT 24.3 % (38.0-50.0); IMMATURE GRANULOCYTE (%) 3.8 % (0.0-0.7); IMMATURE GRANULOCYTE COUNT 1.2 K/uL; INSTRUMENT ABS NEUTROPHIL CT 28.6 K/uL; LYMPHOCYTE COUNT 0.3 K/uL (1.0-2.8); MCH 30.1 PG (29.0-34.0); MCHC 36.2 G/DL (30.0-36.0); MCV 83.2 FL (86-99); MEAN PLAT.VOLUME 9.3 uM^3 (9.0-12.4); MONOCYTE (%) 4.2 % (3-12); MONOCYTE COUNT 1.3 K/uL (0-0.8); NEUTROPHIL (%) 90.9 % (45-76); NEUTROPHIL COUNT 28.6 K/uL (1.8-6.4); NRBC (%) 0.1 /100 WBC (0-0); PLATELET COUNT 217 K/uL (156-360); RBC DIS.WIDTH-CV 16.8 % (11.8-14.6); RBC DIS.WIDTH-SD 49.4 % (39-53)
[2017-03-17 09:24] LABS: RED BLOOD COUNT 2.92 M/uL (4.00-5.50); WHITE BLOOD COUNT 31.5 K/uL (4.1-10.2)
[2017-03-17 20:32] LABS: ANION GAP 13 MEQ/L (2-14); CHLORIDE 85 MEQ/L (99-109); GFR ESTIMATE (CALCULATED) > 59 mL/min/; GLUCOSE 128 mg/dL (70-99); POTASSIUM 3.5 MEQ/L (3.7-5.4); SAMPLE HEMOLYSIS CHECK 0; SAMPLE ICTERIC CHECK 0; SAMPLE LIPEMIA CHECK 0; SODIUM 121 MEQ/L (136-147); UREA NITROGEN (BUN) 66 mg/dL (9-23)
[2017-03-18] VITALS (8 sets, daily range): BP systolic 126–160; BP diastolic 74–87
[2017-03-18 06:19] LABS: EOSINOPHIL (%) 0 % (0-5); HEMATOCRIT 20.6 % (38.0-50.0); IMMATURE GRANULOCYTE (%) 4.2 % (0.0-0.7); IMMATURE GRANULOCYTE COUNT 1.3 K/uL; INSTRUMENT ABS NEUTROPHIL CT 26.4 K/uL; LYMPHOCYTE COUNT 0.6 K/uL (1.0-2.8); MCH 29.1 PG (29.0-34.0); MCHC 35.4 G/DL (30.0-36.0); MCV 82.1 FL (86-99); MEAN PLAT.VOLUME 9.3 uM^3 (9.0-12.4); MONOCYTE (%) 5.6 % (3-12); MONOCYTE COUNT 1.7 K/uL (0-0.8); NEUTROPHIL (%) 88.1 % (45-76); NEUTROPHIL COUNT 26.4 K/uL (1.8-6.4); NRBC (%) 0.1 /100 WBC (0-0); PLATELET COUNT 215 K/uL (156-360); RBC DIS.WIDTH-CV 16.6 % (11.8-14.6); RBC DIS.WIDTH-SD 48.4 % (39-53); RED BLOOD COUNT 2.51 M/uL (4.00-5.50); WHITE BLOOD COUNT 29.9 K/uL (4.1-10.2)
[2017-03-18 06:41] LABS: ANION GAP 13 MEQ/L (2-14); CHLORIDE 85 MEQ/L (99-109); GFR ESTIMATE (CALCULATED) > 59 mL/min/; GLUCOSE 120 mg/dL (70-99); POTASSIUM 3.5 MEQ/L (3.7-5.4); SAMPLE HEMOLYSIS CHECK 0; SAMPLE ICTERIC CHECK 0; SAMPLE LIPEMIA CHECK 0; SODIUM 120 MEQ/L (136-147); UREA NITROGEN (BUN) 66 mg/dL (9-23)
[2017-03-18 09:32] LABS: ANION GAP 11 MEQ/L (2-14); CHLORIDE 85 MEQ/L (99-109); GFR ESTIMATE (CALCULATED) > 59 mL/min/; GLUCOSE 113 mg/dL (70-99); POTASSIUM 3.4 MEQ/L (3.7-5.4); SAMPLE HEMOLYSIS CHECK 0; SAMPLE ICTERIC CHECK 0; SAMPLE LIPEMIA CHECK 0; SODIUM 120 MEQ/L (136-147); UREA NITROGEN (BUN) 65 mg/dL (9-23)
[2017-03-18 13:01] LABS: ADD MIUA? YES; BILIRUBIN NEGATIVE; BLOOD SMALL; COLOR YELLOW ((YELLOW)); GLUCOSE (STRIP) NEGATIVE; KETONES NEGATIVE; LEUKOCYTES LARGE; NITRITE NEGATIVE; PROTEIN (STRIP) 30; SPECIFIC GRAVITY 1.013 (1.000-1.030); UROBILINOGEN 0.2 MG/DL (0.2-1.0)
[2017-03-18 13:06] LABS: BACTERIA RARE /HPF; EPITHELIAL CELLS NONE SEEN /HPF; HYALINE CASTS 0-5 /LPF; MUCUS TRACE /LPF; UCUL ADDED? NO; WHITE BLOOD CELLS 15-20 /HPF (0-5)
[2017-03-18 21:56] LABS: ANION GAP 15 MEQ/L (2-14); CHLORIDE 83 MEQ/L (99-109); GFR ESTIMATE (CALCULATED) > 59 mL/min/; GLUCOSE 114 mg/dL (70-99); POTASSIUM 3.6 MEQ/L (3.7-5.4); SAMPLE HEMOLYSIS CHECK 0; SAMPLE ICTERIC CHECK 0; SAMPLE LIPEMIA CHECK 0; UREA NITROGEN (BUN) 62 mg/dL (9-23)
[2017-03-18 22:06] LABS: SODIUM 118 MEQ/L (136-147)
[2017-03-19 03:35] VITALS: BP 142/79
[2017-03-19 06:43] LABS: MEAN PLAT.VOLUME 9.2 uM^3 (9.0-12.4); PLATELET COUNT 220 K/uL (156-360)
[2017-03-19 06:46] VITALS: BP 157/88
[2017-03-19 07:00] LABS: HEMATOCRIT 20.8 % (38.0-50.0); MCHC 35.1 G/DL (30.0-36.0); MCV 82.5 FL (86-99); RBC DIS.WIDTH-CV 16.7 % (11.8-14.6); RBC DIS.WIDTH-SD 48.2 % (39-53); RED BLOOD COUNT 2.52 M/uL (4.00-5.50)
[2017-03-19 07:04] LABS: WHITE BLOOD COUNT 33.1 K/uL (4.1-10.2)
[2017-03-19 07:19] LABS: ABS NEUTROPHIL COUNT 31.2; EOSINOPHIL ABS CT 0; INSTRUMENT ABS NEUTROPHIL CT 28.5 K/uL; LYMPHOCYTES 1.9 % (15.0-45.0); NUCLEATED RBC'S 1.9; SEG.NEUTROPHILS 94.3 % (46.0-76.0)
[2017-03-19 09:07] LABS: ANION GAP 16 MEQ/L (2-14); CHLORIDE 85 MEQ/L (99-109); GFR ESTIMATE (CALCULATED) 51 mL/min/; GLUCOSE 119 mg/dL (70-99); POTASSIUM 3.5 MEQ/L (3.7-5.4); SAMPLE HEMOLYSIS CHECK 0; SAMPLE ICTERIC CHECK 0; SAMPLE LIPEMIA CHECK 0; SODIUM 121 MEQ/L (136-147); UREA NITROGEN (BUN) 69 mg/dL (9-23)
[2017-03-19 10:10] VITALS: BP 138/91
[2017-03-19 14:55] VITALS: BP 145/86
[2017-03-19 20:58] LABS: ANION GAP 14 MEQ/L (2-14); CHLORIDE 82 MEQ/L (99-109); GFR ESTIMATE (CALCULATED) 47 mL/min/; GLUCOSE 148 mg/dL (70-99); POTASSIUM 4.3 MEQ/L (3.7-5.4); SAMPLE HEMOLYSIS CHECK 0; SAMPLE ICTERIC CHECK 0; SAMPLE LIPEMIA CHECK 0; UREA NITROGEN (BUN) 83 mg/dL (9-23)
[2017-03-19 20:59] LABS: SODIUM 115 MEQ/L (136-147)
[2017-03-20] VITALS (11 sets, daily range): BP systolic 130–156; BP diastolic 74–86
[2017-03-20 07:04] LABS: HEMATOCRIT 18.6 % (38.0-50.0); MCH 30.2 PG (29.0-34.0); MCV 83.8 FL (86-99); MEAN PLAT.VOLUME 9.6 uM^3 (9.0-12.4); NRBC (%) 1.9 /100 WBC (0-0); PLATELET COUNT 226 K/uL (156-360); RBC DIS.WIDTH-CV 16.9 % (11.8-14.6); RED BLOOD COUNT 2.22 M/uL (4.00-5.50)
[2017-03-20 07:08] LABS: WHITE BLOOD COUNT 43.4 K/uL (4.1-10.2)
[2017-03-20 07:26] LABS: ANION GAP 17 MEQ/L (2-14); CHLORIDE 83 MEQ/L (99-109); GFR ESTIMATE (CALCULATED) 39 mL/min/; GLUCOSE 126 mg/dL (70-99); POTASSIUM 3.8 MEQ/L (3.7-5.4); SAMPLE HEMOLYSIS CHECK 0; SAMPLE ICTERIC CHECK 0; SAMPLE LIPEMIA CHECK 0; UREA NITROGEN (BUN) 90 mg/dL (9-23)
[2017-03-20 07:27] LABS: SODIUM 118 MEQ/L (136-147)
[2017-03-20 08:20] LABS: ABS NEUTROPHIL COUNT 39.6; ANISOCYTOSIS 2+; BAND NEUTROPHILS 0.5 % (0-8.0); EOSINOPHIL ABS CT 0; INSTRUMENT ABS NEUTROPHIL CT 37.2 K/uL; LYMPHOCYTES 1.8 % (15.0-45.0); MACROCYTES 1+; MICROCYTOSIS 1+; MYELOCYTES 1.8 %; NUCLEATED RBC'S 1.4; PLAT.SUFFICIENCY ADEQUATE; POLYCHROMASIA 2+; SEG.NEUTROPHILS 90.8 % (46.0-76.0)
[2017-03-20 13:49] LABS: ANION GAP 17 MEQ/L (2-14); CHLORIDE 83 MEQ/L (99-109); GFR ESTIMATE (CALCULATED) 37 mL/min/; GLUCOSE 148 mg/dL (70-99); POTASSIUM 4.4 MEQ/L (3.7-5.4); SAMPLE HEMOLYSIS CHECK 0; SAMPLE ICTERIC CHECK 0; SAMPLE LIPEMIA CHECK 0; UREA NITROGEN (BUN) 98 mg/dL (9-23)
[2017-03-20 13:53] LABS: SODIUM 117 MEQ/L (136-147)
[2017-03-20 20:01] LABS: ANION GAP 20 MEQ/L (2-14); CHLORIDE 86 MEQ/L (99-109); GFR ESTIMATE (CALCULATED) 37 mL/min/; GLUCOSE 121 mg/dL (70-99); POTASSIUM 4.3 MEQ/L (3.7-5.4); SAMPLE HEMOLYSIS CHECK 0; SAMPLE ICTERIC CHECK 0; SAMPLE LIPEMIA CHECK 0; SODIUM 121 MEQ/L (136-147); UREA NITROGEN (BUN) 91 mg/dL (9-23)
[2017-03-21] VITALS (20 sets, daily range): BP systolic 109–159; BP diastolic 58–90
[2017-03-21 07:19] LABS: ANION GAP 18 MEQ/L (2-14); CHLORIDE 82 MEQ/L (99-109); GFR ESTIMATE (CALCULATED) 30 mL/min/; GLUCOSE 111 mg/dL (70-99); POTASSIUM 4.3 MEQ/L (3.7-5.4); SAMPLE HEMOLYSIS CHECK 0; SAMPLE ICTERIC CHECK 0; SAMPLE LIPEMIA CHECK 0
[2017-03-21 07:23] LABS: SODIUM 117 MEQ/L (136-147); UREA NITROGEN (BUN) 102 mg/dL (9-23)
[2017-03-21 13:21] LABS: ANION GAP 15 MEQ/L (2-14); CHLORIDE 84 MEQ/L (99-109); GFR ESTIMATE (CALCULATED) 30 mL/min/; GLUCOSE 152 mg/dL (70-99); POTASSIUM 4.1 MEQ/L (3.7-5.4); SAMPLE HEMOLYSIS CHECK 0; SAMPLE ICTERIC CHECK 0; SAMPLE LIPEMIA CHECK 0
[2017-03-21 13:30] LABS: SODIUM 115 MEQ/L (136-147); UREA NITROGEN (BUN) 115 mg/dL (9-23)
[2017-03-21 17:32] LABS: MEAN PLAT.VOLUME 9.9 uM^3 (9.0-12.4); PLATELET COUNT 221 K/uL (156-360)
[2017-03-21 17:39] LABS: HEMATOCRIT 22.9 % (38.0-50.0); MCH 30.6 PG (29.0-34.0); MCHC 36.2 G/DL (30.0-36.0); MCV 84.5 FL (86-99); NRBC (%) 2.9 /100 WBC (0-0); RBC DIS.WIDTH-CV 16.3 % (11.8-14.6); RBC DIS.WIDTH-SD 46.5 % (39-53); RED BLOOD COUNT 2.71 M/uL (4.00-5.50); WHITE BLOOD COUNT 50.9 K/uL (4.1-10.2)
[2017-03-21 17:50] LABS: CHLORIDE 86 mEq/L (99-109); POTASSIUM 4.4 mEq/L (3.7-5.4)
[2017-03-21 17:52] LABS: GLUCOSE 135 mg/dL (70-99)
[2017-03-21 17:53] LABS: ANION GAP 18 MEQ/L (2-14)
[2017-03-21 17:55] LABS: ALKALINE PHOSPHATASE 66 IU/L (3-129)
[2017-03-21 17:56] LABS: GFR ESTIMATE (CALCULATED) 27 mL/min/
[2017-03-21 17:59] LABS: TROP-I INTERPRETATION NEGATIVE; TROPONIN-I 0.01 ng/mL (0.0-0.30)
[2017-03-21 18:01] LABS: SODIUM 119 mEq/L (136-147); TOTAL BILIRUBIN 0.5 mg/dL (0.0-1.0); UREA NITROGEN (BUN) 117 mg/dL (9-23)
[2017-03-21 19:52] LABS: METH RESISTANT S AUREUS PCR NEGATIVE (NEGATIVE)
[2017-03-21 19:56] LABS: PROBE CHECK PASS; SPECIMEN PROCESSING CONTROL PASS
[2017-03-21 20:08] LABS: ANION GAP 19 MEQ/L (2-14); CHLORIDE 84 MEQ/L (99-109); GFR ESTIMATE (CALCULATED) 27 mL/min/; GLUCOSE 146 mg/dL (70-99); POTASSIUM 4.4 MEQ/L (3.7-5.4); SAMPLE HEMOLYSIS CHECK 0; SAMPLE ICTERIC CHECK 0; SAMPLE LIPEMIA CHECK 0
[2017-03-21 20:09] LABS: SODIUM 117 MEQ/L (136-147)
[2017-03-21 20:10] LABS: UREA NITROGEN (BUN) 120 mg/dL (9-23)
[2017-03-21 20:34] LABS: PTT 45.5 (25-32)
[2017-03-21 20:38] LABS: INTER. NORMALIZED RATIO 2.7
[2017-03-21 22:28] LABS: UR CREATININE CONCENTRATION 37.9 MG/DL
[2017-03-22] VITALS (13 sets, daily range): BP systolic 102–145; BP diastolic 60–84
[2017-03-22 06:33] LABS: ANION GAP 18 MEQ/L (2-14); CHLORIDE 86 MEQ/L (99-109); GFR ESTIMATE (CALCULATED) 26 mL/min/; GLUCOSE 133 mg/dL (70-99); POTASSIUM 4.1 MEQ/L (3.7-5.4); SAMPLE HEMOLYSIS CHECK 0; SAMPLE ICTERIC CHECK 0; SAMPLE LIPEMIA CHECK 0; SODIUM 120 MEQ/L (136-147)
[2017-03-22 06:34] LABS: UREA NITROGEN (BUN) 129 mg/dL (9-23)
[2017-03-22 09:22] LABS: C DIFF TOXIN NEGATIVE (NEGATIVE)
[2017-03-22 09:37] LABS: PROBE CHECK PASS; SPECIMEN PROCESSING CONTROL PASS
[2017-03-23 06:57] LABS: ANION GAP 21 MEQ/L (2-14); CHLORIDE 86 MEQ/L (99-109); GFR ESTIMATE (CALCULATED) 23 mL/min/; POTASSIUM 4.9 MEQ/L (3.7-5.4); SAMPLE HEMOLYSIS CHECK 0; SAMPLE ICTERIC CHECK 0; SAMPLE LIPEMIA CHECK 0
[2017-03-23 07:01] LABS: GLUCOSE 201 mg/dL (70-99); SODIUM 115 MEQ/L (136-147); UREA NITROGEN (BUN) 131 mg/dL (9-23)
== END 2017-03-23 06:00 | DRG 871 ==
LOC: EME → EDBD 21:50 → EME 21:50 → 5EAST 23:55 → EDOF 23:55 → 5EAST 03-15 01:51 → 4WEST 03-21 17:24 → 5EAST 03-22 15:59
PROVIDERS: Anesthesiology; Emergency Medicine; Family Medicine; Hospitalist; Internal Medicine Critical Care Medicine; Internal Medicine Nephrology
PROC: 30233N1 Transfusion of Nonautologous Red Blood Cells into Peripheral Vein, Percutaneous Approach (ICD-10-PCS; principal; 2017-03-14)
PROC: 0T25X0Z Change Drainage Device in Kidney, External Approach (ICD-10-PCS; 2017-03-16)
PROC: 0T9030Z Drainage of Right Kidney with Drainage Device, Percutaneous Approach (ICD-10-PCS; 2017-03-16)
DX: A41.89 Other specified sepsis (principal); E43 Unspecified severe protein-calorie malnutrition; G93.41 Metabolic encephalopathy; N17.9 Acute kidney failure, unspecified; R64 Cachexia; K59.39 Other megacolon; R18.8 Other ascites; C77.8 Secondary and unspecified malignant neoplasm of lymph nodes of multiple regions; C79.00 Secondary malignant neoplasm of unspecified kidney and renal pelvis; C79.11 Secondary malignant neoplasm of bladder; C83.30 Diffuse large B-cell lymphoma, unspecified site; D63.0 Anemia in neoplastic disease; R65.20 Severe sepsis without septic shock; E83.51 Hypocalcemia; E86.9 Volume depletion, unspecified; E87.1 Hypo-osmolality and hyponatremia; E87.6 Hypokalemia; E87.70 Fluid overload, unspecified; E87.8 Other disorders of electrolyte and fluid balance, not elsewhere classified; F17.210 Nicotine dependence, cigarettes, uncomplicated; I89.0 Lymphedema, not elsewhere classified; J98.11 Atelectasis; K56.7 Ileus, unspecified; N48.89 Other specified disorders of penis; N50.89 Other specified disorders of the male genital organs; Z51.5 Encounter for palliative care; Z92.21 Personal history of antineoplastic chemotherapy; N13.9 Obstructive and reflux uropathy, unspecified; R31.0 Gross hematuria; K92.1 Melena; R19.00 Intra-abdominal and pelvic swelling, mass and lump, unspecified site; R60.0 Localized edema; R71.0 Precipitous drop in hematocrit; R73.9 Hyperglycemia, unspecified; N99.522 Malfunction of incontinent external stoma of urinary tract; E86.0 Dehydration
CPT/HCPCS: 50435; 70450; 71010; 74176; 75984; 76705; 76770; 80048; 80048 91; 80053; 80202; 81003; 82533 91; 82570; 82948; 83605; 83615; 83735; 83880; 83930; 83935; 84100; 84300; 84443; 84484; 84550; 85025; 85027; 85610; 85730; 86900; 86901; 86920; 87040; 87077; 87086; 87186; 87493; 87641; 87801; 93005; 93970; 99281; 99285; C1725; C1769; J0692; J1940; J2405; J3370; J3480; J7030; J7050; J7120; J7512; P9016; Q0164; S0030